=== PATIENT | female | born 1990 | race Caucasian/White ===

== ENCOUNTER 2020-06-17 10:51 | Outpatient (CLI) | payer BC, SELFPAY ==
--- NOTE | ~2020-06-17 | MR_ITS ---
EXAMINATION: MR brain/brain stem wo/w con EXAM DATE: 06/17/2020 11:51 INDICATION: Cough headaches, lasting 1 minute. Symptoms for a few years. TECHNIQUE: Magnetic resonance imaging (MRI) of the brain/brain stem obtained without contrast. Sagit kalpana T1, axial diffusion, gradient echo (T2*), T1, T2, FLAIR sequences obtained. Patient was then inj ected with 20 cc intravenous Multihance contrast. Axial and coronal postcontrast T1 weighted sequence s obtained. There is no prior study for comparison. FINDINGS: Patient has Chiari I malformation, potentially could explain the history provided above. Th ere are no areas of restricted diffusion to suggest acute infarction. There is no acute hemorrhage s een on the T2*, a hemosiderin sensitive sequence. No intraparenchymal brain mass. The ventricles are normal in size. There are no extra-axial collections. Flow voids are seen in the cerebral arteries on the T2-weighted sequences consistent with their expected patency. The orbits are unremarkable. Soft tissue is unremarkable. There are no areas of abnormal enhancement on the postcontrast images. IMPRESSION: Chiari I malformation, potentially could explain symptoms provided. Reviewed, dictated and finalized at location B. 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
[2020-06-17 11:29] LABS: Estimated Glomerular Filt Rate > 60
== END 2020-06-17 10:52 ==
DX: G44.83 Primary cough headache (principal)
CPT/HCPCS: 70553; A9577

== ENCOUNTER 2021-10-20 13:28 | Outpatient (CLI) | payer BC, SELFPAY ==
--- NOTE | ~2021-10-20 | US_ITS ---
EXAMINATION: US transvaginal DATE: 10/20/2021 13:59 INDICATION: Displaced intrauterine device Comparison:No prior studies for comparison. TECHNIQUE: Multiple transabdominal and endovaginal sonographic images of the pelvis performed. FINDINGS: The uterus measures 7.7 x 4 x 4.2 mm. IUD is present in the endometrium. The endometrial co mplex measures 5.5 mm. The right ovary measures 2.3 x 1.9 x 1.7 cm and the left ovary measures 2 x 1.5 x 1.7 cm. There is a 2 cm left ovarian cyst. There are small follicles in each ovary. Normal doppler signal in both ovarie s. There is no free fluid in the pelvis. There are no abnormal masses seen on either side. IMPRESSION: 1. Left ovarian cyst measuring 2 cm. 2: IUD in expected position in the endometrium. Reviewed, dictated and finalized at location A.
== END 2021-10-20 13:29 ==
LOC: MICIMG 13:31
PROVIDERS: PCP Physician Assistant; Visit Provider Obstetrics & Gynecology Gynecology
DX: T83.32XA Displacement of intrauterine contraceptive device, initial encounter (principal); N83.202 Unspecified ovarian cyst, left side
CPT/HCPCS: 76830

== ENCOUNTER → 2022-08-30 09:09 | Outpatient (CLI) | payer BC, SELFPAY ==
--- NOTE | ~2022-08-30 | US_ITS ---
EXAMINATION: US breast RT complete HISTORY: Palpable lump in the upper outer quadrant of the right breast. TECHNIQUE: Complete right breast ultrasound is performed including all four quadrants as well as the subareolar breast. COMPARISON: 01/16/2019 FINDINGS: There is no evidence of focal abnormal cystic or solid mass in the vicinity of the reported palpable abnormality of concern. IMPRESSION: No specific sonographic correlate is identified for the reported palpable abnormality of concern. Fur ther evaluation at this time should be based on clinical assessment. Continued follow-up physical exa mination is recommended. BI-RADS Category 1: Negative Reviewed, dictated and finalized at location A. IMPRESSION: No specific sonographic correlate is identified for the reported palpable abnor mality of concern. Further evaluation at this time should be based on clinical assessment. Continued follow-up physical examination is recommended. BI-RADS Category 1: Negative
== END ==
PROVIDERS: PCP Physician Assistant; Visit Provider Nurse Practitioner
DX: N63.10 Unspecified lump in the right breast, unspecified quadrant (principal)
CPT/HCPCS: 76641

== ENCOUNTER 2024-06-25 00:19 | Day surgery (SDC) | payer BC, SELFPAY ==
--- NOTE | 2024-06-12 09:58 | SUR.PREOP ---
Report to the Outpatient Waiting Room, entrance under the green pavilion located off [facility], at time 1130 on date 06/25/24. Planned Procedure Time: 1330.? Time changes happen often and if your time is changed the preop area will call you the afternoon before. - You and your visitor will be asked to self-screen and do not enter if you have any COVID symptoms. Please call surgeon if you need to reschedule. - A mask is optional within the hospital at this time. Patients may have clear liquids (water, carbonated beverages, clear teas, apple juice) until 3 hours prior to surgery with a maximum of 20 ounces. - NO CLEAR LIQUIDS AFTER 1030 - No food from midnight until time of surgery and no smoking, or chewing tobacco (or any form of nicotine). No chewing gum, candy or mints. - Infants may have breast milk until 4 hours before surgery, infant formula 6 hours prior to surgery. - Children will be allowed to drink immediately following surgery.? If applicable, please bring a bottle or sippy cup to assist with drinking. Juice, water, soda, and popsicles are readily available.? For infants on formula, please bring formula the day of surgery.? Pacifiers are allowed. Take only the following medications with a SIP of water on the morning of surgery: BUPROPION, BUSPIRONE, CLONAZEPAM DO NOT STOP ANY OF YOUR OTHER PRESCRIPTION MEDICATIONS PRIOR TO SURGERY EXCEPT THE FOLLOWING Hold all vitamins and supplements for 3 days per anesthesiologist. Medications to discontinue per physician VITAMINS Date to take last dose 06/21/24 Please no make-up, nail divehi, hairspray, perfume, deodorant, or body powder the day of surgery.? No jewelry (including any body piercings) or valuables the day of surgery, leave them at home.? Please take a shower or bath the night before, or the morning of, surgery with an antibacterial soap.? Wear comfortable, loose fitting clothing.? Children are encouraged to wear pajamas. - Jewelry must be removed prior to entering the operating room.? Rings and piercings that are not removed may be cut off. - The hospital will not accept responsibility for valuables.? - Please leave all valuables, including medications, at home the day of surgery. If you are going home after surgery, a licensed electric mule driver must drive you home.? - NO public transportation without another adult if you receive anesthesia. - We recommend that an adult stay with you for 24 hours following discharge. - We also recommend that you do not drive, make important decision, drink alcoholic beverages, or take any drugs that were not prescribed by your health care provider for at least 24 hours after your discharge time. For Pediatric surgeries, we recommend two adults accompany the child home. Follow any additional instructions given to you from your surgeon. Telephone instructions given to ARASH WOODWARD and asked if any additional questions and then verbalized understanding. Patient advised to call surgeon office or pre surgery nurse liaison [phone] if any additional questions.
[2024-06-12 10:14] VITALS: BMI 41.1
[2024-06-25] VITALS (8 sets, daily range): BP systolic 90–134; BP diastolic 51–82; PULSE 84–100; RESP 12–19; TEMP 36.5–37.4; O2SAT 96–100
--- OUTSIDE RECORDS SUMMARY | 2024-06-25 00:22 | XMS_ITS ---
Author Organization [facility] Address [address] [place] [address] Care Team Providers Care Patcher Wood Welder Name Role Phone Bea Harper PA-C Primary Care Provider UnaJoi Mendez Unavailable [phone] Allergies Allergen (clinical drug ingredient) Drug/Non Drug Allergy documented on EMR Reaction Allergy Type Onset Date Status amoxicillin Amoxicillin Unknown Drug Allergy 08/09/2023 Ac tive Keflex Unknown Drug Allergy 08/09/2023 Active Substance with penicillin structure and antibacterial mechanism of action (substance) Penicillins Unknown Drug Allergy 08/09/2023 Active REASON FOR VISIT follow up medication eval Medications Medication SIG (Take, Route, Frequency, Duration) Notes Start Date End Date Status busPIRone HCl 10 MG 1 tablet Oral Twice a day for 90 days take each morning and afternoon Active busPIRone HCl 30 MG 1 tablet every night Oral Once a day for 90 days Active clonazePAM 0.5 MG 1 tablet Oral Once a day for 30 days As needed for anxiety 05/22/2024 Active buPROPion HCl ER (XL) 300 MG 1 tablet every morning Oral Once a day for 90 days take together with 150 mg tablet for total dose of 450 mg Active lamoTRIgine 100 MG 1 tablet Oral twice a day for 90 days pt also takes 200 mg once daily Active buPROPion HCl ER (XL) 150 MG 1 tablet Oral Once a day for 90 days take together with 300 mg tablet for total dose of 450 mg daily Active lamoTRIgine 200 MG 1 tablet Oral Once a day for 90 days pt also takes lamotrigine 100 mg bid Active Social History Sex Assigned At : Social History Observation Description Sex Assigned At Female Vital Signs Height 68.00 in 05/22/2024 Height-cm 172.72 cm 05/22/2024 Encounters Encounter Location Date Provider Diagnosis [facility] [address] [place] [address] 05/22/2024 Joi Sparks Bipolar disorder, unspecified F31.9 ; Obsessive-compulsive disorder, unspecified F42.9 ; Generalized anxiety disorder F41.1 ; Borderline personality disorder F60.3 and Attention-deficit hyperactivity disorder, unspecified type F90.9 Assessments Encounter Date Diagnosis (ICD Code) Assessment Notes Treatment Notes Treatment Clinical Notes Section Notes 05/22/2024 Bipolar disorder, unspecified (ICD-10 - F31.9) 05/22/2024 Obsessive-compulsi ve disorder, unspecified (ICD-10 - F42.9) 05/22/2024 Generalized anxiety disorder (ICD-10 - F41.1) 05/22/2024 Borderline personality disorder (ICD-10 - F60.3) 05/22/2024 Attention-deficit hyperactivity disorder, unspecified type (ICD-10 - F90.9) Plan Of Treatment Medication Medication Name Sig Start Date Stop Date Notes busPIRone HCl 10 MG 1 tablet Oral Twice a day for 90 days busPIRone HCl 30 MG 1 tablet every night Oral Once a day for 90 days clonazePAM 0.5 MG 1 tablet Oral Once a day for 30 days 05/22/2024 buPROPion HCl ER (XL) 300 MG 1 tablet every morning Oral Once a day for 90 days lamoTRIgine 100 MG 1 tablet Oral twice a day for 90 days pt also takes 200 mg once daily buPROPion HCl ER (XL) 150 MG 1 tablet Oral Once a day for 90 days lamoTRIgine 200 MG 1 tablet Oral Once a day for 90 days pt also takes lamotrigine 100 mg bid Next Appt Details Follow Up: 2 Months, Reason: bipolar d/o f/u; ocd, robby, borderline pers d/o, adhd Provider Name:Unique Black, 07/10/2024 09:00:00 AM, [address], [place], [address], Progress Notes * ARASH WOODWARD MDOB: [birth year] (33 yo F)Acc No.[id number]:05/22/2024 Patient: ARASH GUY Provider: Mila SPARKS MD :1990 A ge:33 Y S ex:Female Date:05/22/2024 Address: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 Follow up medication eval. * HPI: D epression screening: PHQ-9 L ittle interest or pleasure in doing things M ore than half the days, F eeling down, depressed, or hopeless N early every day, T rouble falling or staying asleep, or sleeping too much S everal days, F eeling tired or having little energy M ore than half the days, P oor appetite or overeating S everal days, F eeling bad about yourself or that you are a failure, or have let yourself or your family down N ot at all, T rouble concentrating on things, such as reading the newspaper or watching television?Nearly every day, M oving or speaking so slowly that other people could have noticed; or the opposite, being so fidgety or restless that you have been moving around a lot more than usual M ore than half the days, T houghts that you would be better off or of hurting yourself in some way S everal days (Consider Suicide Assessment Risk), T otal Score 1 5, I nterpretation M oderately Severe Depression. I ntervention D epression Screening Findings Positve, F ollow-Up for Depression M ental health treatment assessment, Patient follow-up to return when and if necessary, Psychiatric follow-up, S uicide Risk Assessment Performed 0 05/22/2024, A dditional Evaluation for Depression P sychiatric interview and evaluation,?Name of the standardized tool used for adult depression screening: P atient Health Questionnaire (PHQ-9). 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 * Medical History: P michelle: Attention deficit hyperactivity disorder, Bipolar I disorder, Borderline personality disorder, Generalized anxiety disorder, Obsessive-compulsive disorder, ,. * Medications: T aking busPIRone HCl 10 MG Tablet 1 tablet Oral Twice a day take each morning and afternoon, Taking busPIRone HCl 30 MG Tablet 1 tablet every night Oral Once a day , Taking clonazePAM 0.5 MG Tablet 1 tablet Oral Once a day As needed for anxiety, Taking lamoTRIgine 100 MG Tablet 1 tablet Oral twice a day , Taking lamoTRIgine 200 MG Tablet 1 tablet Oral Once a day , Taking buPROPion HCl ER (XL) 150 MG Tablet Extended Release 24 Hour TAKE 1 TABLET BY MOUTH DAILY. TOGETHER WITH 300 MG TABLET FOR TOTAL DOSE 450 MG EVERY MORNING 30 DAYS Once a day , Taking buPROPion HCl ER (XL) 300 MG Tablet Extended Release 24 Hour 1 tablet every morning Oral Once a day , Medication List reviewed and reconciled with the patient * Allergies: A moxicillin: Allergy - Onset Date 08/09/2023, Keflex: Allergy - Onset Date 08/09/2023, Penicillins: Allergy - Onset Date 08/09/2023. Objective: * Vitals: H t: 68.00 in, Ht-cm: 172.72 cm. * Examination: P sychiatry: Appearance: w ell-groomed, well-nourished, a ppears younger. Affect / mood: a ppropriate, full range, extremely anxious about potentially pan norovirus-- triggers my OCD , depressed. Attention: g ood. Attitude: c ooperative. Suicidal ideation: n one. Memory status: n o impairment noted. Degree of awareness of surroundings: w ithin normal limits.? Delusions: n o. Hallucinations: n o. Insight: g ood. Intellectual functioning: n o impairment noted. Judgement: g ood. Orientation: a wake, alert and oriented x 3. Perceptual disorders: n o perceptual disorder noted. Psychomotor activity: w ithin normal range. Speech / language: a ppropriate pitch/modulation, clear and coherent, normal rate, volume, and articulation (RVR), proper grammar used. Thought content: a ppropriate. Thought process: i ntact. Assessment: * Assessment: 1. B ipolar disorder, unspecified - F31.9 (Primary) 2 . O bsessive-compulsive disorder, unspecified - F42.9 3 . G eneralized anxiety disorder - F41.1 ? 4 . B orderline personality disorder - F60.3 5 . A ttention-deficit hyperactivity disorder, unspecified type - F90.9 Plan: * Treatment: 2. G eneralized anxiety disorder Refill busPIRone HCl Tablet, 10 MG, 1 tablet, Oral, Twice a day take each morning and afternoon, 90 days, 180, Refills 0; R efill busPIRone HCl Tablet, 30 MG, 1 tablet every night, Oral, Once a day, 90 days, 90, Refills 0; R efill clonazePAM Tablet, 0.5 MG, 1 tablet, Oral, Once a day As needed for anxiety, 30 days, 30, Refills 0. * Procedure Codes: 9 6127 BEHAV ASSMT W/SCORE & DOCD/STAND INSTRUMENT * Follow Up: 2 Months (Reason: bipolar d/o f/u; ocd, robby, borderline pers d/o, adhd) * Billing Information: * Visit Code: 62708 OFFICE OUTPATIENT VISIT 25 MINUTES DETAILED HISTORY AND EXAM/MODERATE MEDICAL DECISION MAKING. * Procedure Codes: 27874 BEHAV ASSMT W/SCORE & DOCD/STAND INSTRUMENT. * ER SHOP OPERATOR Sign off status: Completed Addendum: * true * Provider: Mila SPARKS MD Date: 05/22/2024 Generated for Kallie mendez/Prince/Kristie on: 06/25/2024 12:22 AM BARBER SHOP OPERATOR History and Physical Notes * HPI (History of Present Illness) Category Sub-Category Detail Notes Category Not es Depression screening PHQ-9 Little inte rest or pleasure in doing things: More than half the days Feeling down, depressed, or hopeless: Ne horace every day Trouble falling or staying asleep, or sl eeping too much: Several days Feeling tired or having little energy: M ore than half the days Poor appetite or overeating: Several day s Feeling bad about yourself o r that you are a failure, or have let yourself or your family down: Not at all Trouble concentrating on thi ngs, such as reading the newspaper or watching television: Nearly every day Moving or speaking so slowly that other people could have noticed; or the opposite, being so fidgety or restless that you have been moving around a lot more than usual: More than half the days Thoughts that you would be b kyler off or of hurting yourself in some way: Several days (Consider Suicide Assessment Risk) Total Score: 15 Interpretation: Moderately Severe Depres carlos Intervention Depression Screening Findings: P ositve Follow-Up for Depression: [facility] treatment assessment, Patient follow-up to return when and if necessary, Psychiatric follow-up Suicide Risk Assessment Performed: 05/22 Additional Evaluation for Depression: Ps ychiatric interview and evaluation Name of the standardized too l used for adult depression screening:: Patient Health Questionnaire (PHQ-9) Functional Status reports feeling depressed; having a rough time because therapist has taken a leave of absence, pt will be meeting with a new therapist; current therapist indicated that she plans to return in 2-3 weeks, but pt is apprehensive that she may decide not to return at all; OCD symptoms have been worse, worries about norovirus; is trying to maintain involvement in the community; 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; has been trying to read more, but difficult to stay motivated; has set up f/u appt with Unique Black for June; does not want to make any medication changes at this time Examination Category Sub-Category Detail Notes Category Not es Psychiatry Appearance: well-groomed, well-nourished , appears younger Attitude: cooperative Psychomotor activity: within normal rang e Attention: good Degree of awareness of surroundings: wit hin normal limits Orientation: awake, alert and milena ented x 3 Affect / mood: appropriate, full ra nge, extremely anxious about potentially pan norovirus-- triggers my OCD , depressed Speech / language: appropriate pitch/mo dulation, clear and coherent, normal rate, volume, and articulation (RVR), proper grammar used Insight: good Judgement: good Thought process: intact Thought content: appropriate Perceptual disorders: no perceptual diso rder noted Suicidal ideation: none Intellectual functioning: no impairment noted Memory status: no impairment noted Delusions: no Hallucinations: no
--- OUTSIDE RECORDS SUMMARY | 2024-06-25 00:22 | XMS_ITS | Clinical Summary ---
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 Name Role Phone Natalie Harper Primary Care Provider [phone] Allergies Active Allergy Reactions Criticality Noted Date Comments Adhesive Redness Low 10/26/2020 Some tape and bandaids, skin peels, painful Amoxicillin Rash Medium Cephalexin Rash,Hives Medium 05/09/2024 Penicillins Rash,Hives Medium 05/09/2024 Medications levonorgestreL (MIRENA) IUD by intrauterine route Active ergocalciferol (VITAMIN D) 50,000 unit capsule Take 1 capsule (50,000 Units total) by mouth 09/14/19 24 Active clonazePAM (KlonoPIN) 0.5 mg tabletIndicati ons:anxiety Take 1 tablet (0.5 mg total) by mouth 2 (two) times a day as needed for anxiety 10/14/19 24 Active busPIRone (BUSPAR) 30 mg tabletIndicati ons:Generalize d Anxiety Disorder 10mg in AM, 10mg midday and 30mg hs 10/14/19 24 Active buPROPion XL (WELLBUTRIN XL) 150 mg 24 hr tablet Take 3 tablets (450 mg total) by mouth daily 10/14/19 24 Active lamoTRIgine (LaMICtal) 100 mg tablet 100mg in AM and 300mg in PM 10/14/19 24 Active spironolactone (ALDACTONE) 50 mg tablet Take 1 tablet (50 mg total) by mouth daily 90 tablet 1 03/18/20 24 Active olmesartan-amL ODIPin-hcthiaz id 20-5-12.5 mg tablet TAKE 1 TABLET BY MOUTH DAILY 100 tablet 1 06/15/19 25 Active olmesartan-amL ODIPin-hcthiaz id 20-5-12.5 mg tablet TAKE 1 TABLET BY MOUTH DAILY. 90 tablet 1 01/15/20 24 025 Discontinued Active Problems Problem Noted Date Diagnosed Date Lipid screening 05/25/2024 Assessment & Plan (05/25/2024 10:26 PM DENTAL LAB TECHNICIAN): Check labs Costochondritis 05/25/2024 Assessment & Plan (05/25/2024 10:23 PM DENTAL LAB TECHNICIAN): Discussed with patient costochondritis in the musculoskeletal aspect. May use an anti-inflammatory topical anti-inflammatory and or lidocaine patches to the area. Over time this should resolve. Positive depression screening 05/15/2024 Assessment & Plan (05/25/2024 10:26 PM DENTAL LAB TECHNICIAN): Patient has continued and you had depression symptoms. PHQ- 15 Encouraged her to contact her psychiatrist to see if any adjustment to her medications as needed Tachycardia 10/04/2023 Assessment & Plan (10/14/2023 6:51 PM CDT): Patient has been experiencing tachycardia. Denies shortness or breath or dizziness with tachycardia. She drinks a red bull every morning and intakes a lot of caffeine. EKG in the office was normal sinus rhythm with a heart rate at 89. Stressed importance of stopping all caffeine intake. Remain hydrated continue with antihypertensives. If the tachycardia continues may need to consider referral to Cardiology. Need for Tdap vaccination 10/04/2023 Assessment & Plan (10/14/2023 6:52 PM CDT): Tdap updated in the office today Sore throat 01/10/2023 History of 2019 novel coronavirus disease (COVID -19) 11/27/2022 Overview (11/27/2022): Positive 11/25/2022 Morbid obesity 07/06/2022 Assessment & Plan (05/15/2024 9:51 AM DENTAL LAB TECHNICIAN): Discussed the patient's BMI. The BMI is above average. BMI management plan is completed. BMI Follow-up includes: nutrition counseling, exercise counseling and education provided. Assessment & Plan (10/14/2023 6:47 PM CDT): Discussed the patient's BMI. The BMI is above average. BMI management plan is completed. BMI Follow-up includes: nutrition counseling, exercise counseling and education provided. Patient has an obesity-related condition (not limited to: hypertension, obstructive sleep apnea, osteoarthritis, hyperlipidemia, diabetes, etc.). Therefore, morbid obesity may be documented for patients with a BMI between 35.00-39.99. Assessment & Plan (10/12/2022 3:44 PM CDT): Discussed the patient's BMI. The BMI is above average. BMI management plan is completed. BMI Follow-up includes: nutrition counseling, exercise counseling and education provided. Assessment & Plan (07/06/2022 12:00 PM CDT): Discussed the patient's BMI. The BMI is above average. BMI management plan is completed. BMI Follow-up includes: nutrition counseling, exercise counseling and education provided. BMI 39.0-39.9,adult 04/06/2022 Assessment & Plan (10/14/2023 6:46 PM CDT): Discussed the patient's BMI. The BMI is above average. BMI management plan is completed. BMI Follow-up includes: nutrition counseling, exercise counseling and education provided. Assessment & Plan (04/06/2022 7:25 AM DENTAL LAB TECHNICIAN): Discussed the patient's BMI. The BMI is above average. BMI management plan is completed. BMI Follow-up includes: nutrition counseling, exercise counseling and education provided. COVID-19 04/06/2022 Overview (04/06/2022): 03/2022 Assessment & Plan (04/06/2022 7:48 AM DENTAL LAB TECHNICIAN): If positive COVID: Stay home for at least 5 days and isolate from others in your home. Wear a well-fitted mask if you must be around others in your home. End isolation after 5 full days if you are fever-free for 24 hours (without the use of fever-reducing medication) and your symptoms are improving. Wear a well-fitted mask for 10 full days any time you are around others inside your home or in public. Do not go to places where you are unable to wear a mask. Avoid travel Avoid being around people who are at high risk Discussed Kevin -- reviewed risks benefits and alternatives. She would like to treat symptoms at this time and monitor. Treat sxs with Tylenol, Cough/cold medication otc and add VitD 5,000IU daily and Zinc 50mg daily. Monitor sxs and call or go to the ER if has any of the following: --trouble breathing --persistent pain or pressure in the chest --new confusion --inability to wake or stay awake -- bluish lips or face Acute cough 04/06/2022 Assessment & Plan (04/06/2022 8:46 PM DENTAL LAB TECHNICIAN): Patient tested positive for COVID. See COVID for instructions Acute pansinusitis 10/28/2021 Assessment & Plan (10/28/2021 9:50 AM CDT): Start antibiotic, antihistamine (Claritin OR Zyrtec), Mucinex 12hour and Steroid nasal spray (Flonase). Push fluids. Rest. Supportive care. If sxs worsen or don\'t improve, pt is to followup in the office. Doxy to pharmacy as PCN allergy Annual physical exam 10/06/2021 Assessment & Plan (10/14/2023 6:46 PM CDT): Encouraged healthy lifestyle, good nutrition and exercise. Encouraged Calcium and Vitamin D and weight bearing exercise for bone health. Reviewed immunizations Reviewed age appropirate screenings. Assessment & Plan (10/12/2022 3:46 PM CDT): Encouraged healthy lifestyle, good nutrition and exercise. Encouraged Calcium and Vitamin D and weight bearing exercise for bone health. Reviewed immunizations Reviewed age appropirate screenings. Assessment & Plan (10/06/2021 8:05 AM CDT): Encouraged healthy lifestyle, good nutrition and exercise. Encouraged Calcium and Vitamin D and weight bearing exercise for bone health. Reviewed immunizations Reviewed age appropirate screenings. Diabetes mellitus screening 10/06/2021 Assessment & Plan (05/25/2024 10:25 PM DENTAL LAB TECHNICIAN): Check labs Assessment & Plan (10/06/2021 8:05 AM CDT): Check labs Fatigue 10/06/2021 Assessment & Plan (05/25/2024 10:25 PM DENTAL LAB TECHNICIAN): Probably multifactorial. Check labs and followup to re-evaluate Assessment & Plan (10/06/2021 8:06 AM CDT): Probably multifactorial. Check labs and followup to re-evaluate Chiari malformation type I ([facility]) 09/01/2020 Cough headache 11/28/2019 Assessment & Plan (06/03/2020 9:22 AM DENTAL LAB TECHNICIAN): Continue per neurology On Indomethacin MRI pending Assessment & Plan (05/29/2020 8:30 PM DENTAL LAB TECHNICIAN): Continue per Neurology --- Chronic headache 11/28/2019 Assessment & Plan (11/28/2019 9:43 PM CDT): Odd presentation with WILDE. Initially considered tension WILDE. Doesn't seem to be migraine-- Will refer to WILDE clinic for further evaluation to determine best treatment. Cough due to MOISES inhibitor 11/28/2019 Assessment & Plan (11/28/2019 9:44 PM CDT): Change to Losartan BMI 40.0-44.9, adult 10/15/2019 Assessment & Plan (05/15/2024 9:50 AM DENTAL LAB TECHNICIAN): Discussed the patient's BMI. The BMI is above average. BMI management plan is completed. BMI Follow-up includes: nutrition counseling, exercise counseling and education provided. Assessment & Plan (05/29/2020 8:31 PM DENTAL LAB TECHNICIAN): Obesity is unchanged. Discussed the patient's BMI. The BMI is above average. BMI management plan is completed. BMI Follow-up includes: nutrition counseling, exercise counseling and education provided. Assessment & Plan (11/27/2019 4:07 PM CDT): Obesity is unchanged. Discussed the patient's BMI. The BMI is above average. BMI management plan is completed. BMI Follow-up includes: nutrition counseling, exercise counseling and education provided. Assessment & Plan (10/15/2019 11:31 AM CDT): Obesity is unchanged. Discussed the patient's BMI. The BMI is above average. BMI management plan is completed. BMI Follow-up includes: nutrition counseling, exercise counseling and education provided. Chronic tension-type headache, not intractable 0 07/17/2019 Assessment & Plan (10/18/2019 4:28 PM CDT): WILDE seems different than her normal WILDE. Treat bp agressively and will monitor WILDE as bp is controlled Assessment & Plan (07/17/2019 3:06 PM CDT): Discussed WILDE trigger, especially tension WILDE. Stress, poor ergonomics, tight muscles, poor sleep patterns etc. Encouraged to make behavior changes as able. Encouraged PT. Order provided Avoid Psuedofed Start Mucinex and Flonase and an antihistamine. Essential hypertension 07/17/2019 Assessment & Plan (05/25/2024 10:25 PM DENTAL LAB TECHNICIAN): Bp is stable/in acceptable range for any co-morbidities. Encouraged to limit sodium intake and exercise for weight control. Continue Tribenzor 20/5/12.5 Assessment & Plan (10/14/2023 6:45 PM CDT): Bp is stable/in acceptable range for any co-morbidities. Encouraged to limit sodium intake and exercise for weight control. Continue spironolactone and Tribenzor 10/09/11 Assessment & Plan (10/12/2022 3:43 PM CDT): Continue gfhvruwugx-vkauamrqhh-NOHT combination pill. Record at home blood pressure readings. Limit salt intake. Assessment & Plan (07/16/2022 9:52 PM CDT): Encouraged to limit sodium intake and exercise for weight control. bp still is not at goal. Continue amlodipine 5 at nighttime Losartan 50 in the morning and add hydrochlorothiazide 25 in the morning. Follow-up in a week or 2 with readings to see if we have good control. Check CMP in 2-3 weeks for stability with starting diuretic. Assessment & Plan (04/06/2022 8:47 PM DENTAL LAB TECHNICIAN): Encouraged to limit sodium intake and exercise for weight control. Blood pressure is elevated today. She does have a low-grade fever and is ill. Encouraged to continue monitoring at home and if when she is better the readings are still high will need to restart the diuretic. She is in agreement with the plan Assessment & Plan (10/06/2021 8:05 AM CDT): Bp is stable/in acceptable range for any co-morbidities. Encouraged to limit sodium intake and exercise for weight control. Currently managed without medication. Patient thinks her headaches have significantly improved since the treatment of the carry malformation. Will monitor closely as it was a little more elevated today Assessment & Plan (12/12/2020 3:46 PM CDT): Bp is stable/in acceptable range for any co-morbidities. Encouraged to limit sodium intake and exercise for weight control. Continue losartan 25 Assessment & Plan (08/16/2020 1:09 AM CDT): Bp is stable/in acceptable range for any co-morbidities. Encouraged to limit sodium intake and exercise for weight control. Appears stable today. Continue the losartan 25mg bid and monitor readings. Assessment & Plan (07/18/2020 11:41 PM CDT): Bp is stable/in acceptable range for any co-morbidities. Encouraged to limit sodium intake and exercise for weight control. Increase losartan to 50mg (take TWO 25mg tabs) Call in a few weeks with readings and if stable will send 50mg tabs. Assessment & Plan (06/03/2020 9:22 AM DENTAL LAB TECHNICIAN): Bp is stable/in acceptable range for any co-morbidities. Encouraged to limit sodium intake and exercise for weight control. Continue losartan Assessment & Plan (05/29/2020 8:30 PM DENTAL LAB TECHNICIAN): Continue losartan. Cough has resolved. Assessment & Plan (11/28/2019 9:43 PM CDT): Well controlled with lisinopril but suspect MOISES cough. Change to losartan. Monitor bp readings. Assessment & Plan (10/18/2019 4:12 PM CDT): Bp is elevated. Encouraged to limit sodium intake and exercise for weight control. Discussed treatment options. Start with Lisinopril F.u 4 weeks to recheck Assessment & Plan (07/17/2019 3:13 PM CDT): Stop the Psudofed decongestant. 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 She is anxious about these diagnosis possibilities but reassured her this is not cardiac chest pain and that we will treat the musculoskeletal condition appropriately. She is to call if she has any other concerns or problems Assessment & Plan (10/14/2023 6:45 PM CDT): Continue per Psychiatry. She is seeing Dr. Barton in [place]. She is on Klonopin p.r.n. BuSpar 30 at bedtime and 10 in the morning it mid day Lamictal 100 in the a.m. and 300 at bedtime and Wellbutrin XL 450 Assessment & Plan (10/12/2022 3:44 PM CDT): Continue management per psychiatry as she is happy with her current treatment regimen. Assessment & Plan (10/06/2021 8:05 AM CDT): Continue per Psychiatry. Happy with her current combination. Continue with counseling. Assessment & Plan (12/12/2020 3:47 PM CDT): Continue with psychiatrist. Assessment & Plan (08/16/2020 1:10 AM CDT): Continue with psychiatrist. Monitor swelling and sxs closely as may be related to emotional eating. Call with change in her sxs. Assessment & Plan (06/03/2020 9:24 AM DENTAL LAB TECHNICIAN): Continue per Dr. Rodriguez Assessment & Plan (05/29/2020 8:32 PM DENTAL LAB TECHNICIAN): Continue per psychiatrist. Assessment & Plan (11/28/2019 9:44 PM CDT): Continue per psychiatrist Assessment & Plan (07/17/2019 3:09 PM CDT): Strongly encouraged to consider treatment. Encouraged psychiatry evaluation. Provided names of providers in the area. She admits she really is happy with being manic, except when she is so depressed so doesn't think she will consider medication. Resolved Problems Problem Noted Date Diagnosed Date Resolved Date Class 3 severe obesity due t o excess calories without serious comorbidity with body mass index (BMI) of 40.0 to 44.9 in adult 10/12/2022 Assessment & Plan (10/12/2022 3:59 PM CDT): Discussed the patient's BMI. The BMI is above average. BMI management plan is completed. BMI Follow-up includes: nutrition counseling, exercise counseling and education provided. BMI 40.0-44.9, adult 07/06/2022 023 Assessment & Plan (07/06/2022 12:00 PM CDT): Discussed the patient's BMI. The BMI is above average. BMI management plan is completed. BMI Follow-up includes: nutrition counseling, exercise counseling and education provided. Morbid obesity 04/06/2022 07/06/2022 Assessment & Plan (04/06/2022 8:45 PM DENTAL LAB TECHNICIAN): Discussed the patient's BMI. The BMI is above average. BMI management plan is completed. BMI Follow-up includes: nutrition counseling, exercise counseling and education provided. Patient has an obesity-related condition (not limited to: hypertension, obstructive sleep apnea, osteoarthritis, hyperlipidemia, diabetes, etc.). Therefore, morbid obesity may be documented for patients with a BMI between 35.00-39.99. Diarrhea 05/25/2021 10/06/2021 Assessment & Plan (05/25/2021 7:17 PM DENTAL LAB TECHNICIAN): Brat diet. Push fluids and observe for dehydration. Will go ahead and test for COVID is it has been presenting with some GI symptoms. If it is negative will encouraged to continue the above treatment and call if symptoms worsen she notes blood in her stool begins to run a fever or has persistent symptoms that will resolve. Close exposure to COVID-19 virus 05/25/2021 10/06/2021 Assessment & Plan (05/25/2021 7:17 PM DENTAL LAB TECHNICIAN): Patient to presume positive COVID/FLU until results are available and plan to self isolate for up to 10 days from the onset of sxs. Check COVID/FLU test thru [facility] collection site in [place]. Let pt know the newest CDC recommendations are as follows: If positive COVID: Stay home for at least 5 days and isolate from others in your home. Wear a well-fitted mask if you must be around others in your home. End isolation after 5 full days if you are fever-free for 24 hours (without the use of fever-reducing medication) and your symptoms are improving. Wear a well-fitted mask for 10 full days any time you are around others inside your home or in public. Do not go to places where you are unable to wear a mask. Avoid travel Avoid being around people who are at high risk Consider mAb or there appropriate meds depending on risk factors. If positive FLU, complete 5 day quarantine and be fever free for 24 hours without meds and may consider antiviral based on timing and risk factors. If negative, treat sxs and observe. Treat sxs with Tylenol, Cough/cold medication otc and add VitD 5,000IU daily and Zinc 50mg daily. Monitor sxs and call or go to the ER if has any of the following: --trouble breathing --persistent pain or pressure in the chest --new confusion --inability to wake or stay awake -- bluish lips or face Frequent urination 12/12/2020 Assessment & Plan (12/12/2020 3:46 PM CDT): Recheck urine culture/UA to confirm resolution BMI 40.0-44.9, adult 07/08/2020 021 Assessment & Plan (07/08/2020 1:27 PM CDT): Obesity is unchanged. Discussed the patient's BMI. The BMI is above average. BMI management plan is completed. BMI Follow-up includes: nutrition counseling, exercise counseling and education provided. Morbid obesity with BMI of 40.0-44.9, adult 07/08/2020 04/06/2022 Assessment & Plan (10/06/2021 8:05 AM CDT): Obesity is unchanged. Discussed the patient's BMI. The BMI is above average. BMI management plan is completed. BMI Follow-up includes: nutrition counseling, exercise counseling and education provided. Assessment & Plan (12/08/2020 1:05 PM CDT): Obesity is unchanged. Discussed the patient's BMI. The BMI is above average. BMI management plan is completed. BMI Follow-up includes: nutrition counseling, exercise counseling and education provided. Assessment & Plan (07/08/2020 1:28 PM CDT): Obesity is unchanged. Discussed the patient's BMI. The BMI is above average. BMI management plan is completed. BMI Follow-up includes: nutrition counseling, exercise counseling and education provided. BMI 40.0-44.9, adult 06/03/2020 021 Assessment & Plan (06/03/2020 8:55 AM DENTAL LAB TECHNICIAN): Obesity is unchanged. Discussed the patient's BMI. The BMI is above average. BMI management plan is completed. BMI Follow-up includes: nutrition counseling, exercise counseling and education provided. Morbid obesity with BMI of 40.0-44.9, adult 06/03/2020 07/08/2020 Assessment & Plan (06/03/2020 9:24 AM DENTAL LAB TECHNICIAN): Obesity is unchanged. Discussed the patient's BMI. The BMI is above average. BMI management plan is completed. BMI Follow-up includes: nutrition counseling, exercise counseling and education provided. Annual physical exam 05/29/2020 021 Assessment & Plan (05/29/2020 8:32 PM DENTAL LAB TECHNICIAN): Encouraged healthy lifestyle, good nutrition and exercise. Encouraged Calcium and Vitamin D and weight bearing exercise for bone health. Reviewed immunizations Reviewed age appropirate screenings. Morbid obesity with BMI of 40.0-44.9, adult 05/29/2020 05/29/2020 Obesity, morbid, BMI 40.0-49.9 05/26/2020 06/03/2020 Assessment & Plan (05/29/2020 8:31 PM DENTAL LAB TECHNICIAN): Obesity is unchanged. Discussed the patient's BMI. The BMI is above average. BMI management plan is completed. BMI Follow-up includes: nutrition counseling, exercise counseling and education provided. BMI 37.0-37.9, adult 07/17/2019 020 Assessment & Plan (07/17/2019 10:22 AM CDT): Obesity is unchanged. Discussed the patient's BMI. The BMI is above average. BMI management plan is completed. BMI Follow-up includes: nutrition counseling, exercise counseling and education provided. Obesity (BMI 30-39.9) 07/17/20192020 Assessment & Plan (11/27/2019 4:07 PM CDT): Obesity is unchanged. Discussed the patient's BMI. The BMI is above average. BMI management plan is completed. BMI Follow-up includes: nutrition counseling, exercise counseling and education provided. Assessment & Plan (10/15/2019 11:30 AM CDT): Obesity is unchanged. Discussed the patient's BMI. The BMI is above average. BMI management plan is completed. BMI Follow-up includes: nutrition counseling, exercise counseling and education provided. Assessment & Plan (07/17/2019 10:22 AM CDT): Obesity is unchanged. Discussed the patient's BMI. The BMI is above average. BMI management plan is completed. BMI Follow-up includes: nutrition counseling, exercise counseling and education provided. Anxiety 02/18/2016 07/17/2019 Encounters Date Type Department Care Team Description 06/23/2024 Orders Only [facility] [address] [place] [phone] Natalie Harper, PA Change in consistency of stool (Primary Dx) 06/23/2024 Telephone [facility] [address] [place] [address] Zahra Faith MD 06/22/2024 Patient Self-Triage [facility] [address] [place] [phone] Mychart, Generic Provider 05/15/2024 9:30 AM DENTAL LAB TECHNICIAN Office Visit [facility] [address] [place] [phone] Natalie Harper PA Costochondritis (Primary Dx); Bipolar 1 disorder (HCC); Essential hypertension; Lipid screening; Fatigue, unspecified type; Diabetes mellitus screening; Positive depression screening; Morbid obesity (HCC); BMI 40.0-44.9, adult (HCC) 05/10/2024 Patient Self-Triage [facility] [address] [place] [id number] Mychart, Generic Provider from Last 3 Months Immunizations Immunization Administration Dates Next Due HPV, Quadrivalent 08/04/2015 Influenza, Quadrivalent, Rec ombinant, Egg Free, Preservative Free, Intramuscular 02/12/2020,01/31/2018 Influenza, Quadrivalent, Spl it, Preservative Free, Intramuscular 02/21/2023,02/25/2022,02/17/2021,01/18,01/25/2017 Influenza, Trivalent, IM (MDV) 01/12/2014,2012 Influenza, Unspecified 02/21/2023,2022(Deferred: Patient Refused),02/25/2022,01/21/2020 Moderna SARS-CoV-2 Monovalen t Vaccination (12+ YRS) 07/19/2020,06/21/2020 Pfizer Sars-Cov-2 Bivalent V accination (12+ YRS) 02/25/2022 TD Preservative Free 08/03/2012 Tdap 10/04/2023,02/20/2013,08/03/2012 Varicella 06/07/2019,05/01/2019 Surgical History Surgery Date Site/Laterality Comments [place] DELIVERY ONLY Section - 2012 (Added by TW Conv) Medical History Medical History Date Comments History of methicillin resis tant Staphylococcus aureus infection History of methicillin resistant Staphylococcus aureus infection - (Added by TW Conv) Encounter for other general counseling and advice on contraception Encounter for other genera l counseling or advice on contraception - (Added by TW Conv) Anxiety Depression Migraine Hypertension Family History Medical History Relation Name Comments Celiac disease Father Hypertension Father Heart attack Maternal Grandfather Cancer Maternal Grandmother Depression Maternal Grandmother Alcohol abuse Mother Anemia Mother Depression Mother Heart disease Mother Hyperlipidemia Mother Hypertension Mother Memory loss Mother Cancer Paternal Grandmother Hypertension Paternal Grandmother Kidney disease Paternal Grandmother Migraines Paternal Grandmother Bipolar disorder Sister 1 Depression Sister 1 Relation Name Status Comments Father Alive Maternal Grandfather Maternal Grandmother Mother Alive Paternal Grandmother Sister 1 Alive Sister 2 Alive Social History Tobacco Use Types Packs/Day Years Used Date Smoking Tobacco: Never Smokeless Tobacco: Never Tobacco Cessation:Counseling Given: Not Answered Alcohol Use Standard Drinks/Week Comments Never 0 (1 standard drink = 0.6 oz pur e alcohol) AUDIT-C Answer Date Recorded Q1: How often do you have a drink containing alc ohol? 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 Not on file Not on file Obstetrics History Last Filed Vital Signs Vital Sign Reading Time Taken Comments Blood Pressure 126/84 05/15/2024 9:49 AM DENTAL LAB TECHNICIAN Pulse 91 05/15/2024 9:49 AM DENTAL LAB TECHNICIAN Temperature 36.8 C (98.2 F) 05/15/2024 9:49 AM DENTAL LAB TECHNICIAN Respiratory Rate 16 10/12/2022 7:22 AM CDT Oxygen Saturation 97% 05/15/2024 9:49 AM DENTAL LAB TECHNICIAN Inhaled Oxygen Concentration - - Weight 122.4 kg (269 lb 14.4 oz) 05/15/2024 9:49 AM DENTAL LAB TECHNICIAN Height 172.7 cm (5' 8 ) 05/15/2024 9:49 AM DENTAL LAB TECHNICIAN Body Mass Index 41.04 05/15/2024 9:49 AM DENTAL LAB TECHNICIAN Plan of Treatment Health Maintenance Due Date Last Done Comments Hepatitis C Screening 1990 Hepatitis B Screening 2008 HPV Vaccines (2 - 3-dose series) 09/01/2015 08/04/2015 Covid-19 Vaccine ( season) 2023 02/25/2022, 03/16/2021, 07/19/2020, Additional history exists Cervical Cancer Screening 09/05/2024 09/06/2023 Regular Well Visit/Exam 18-64 10/03/2024 10/04/2023, 10/12/2022, 10/06/2021, Additional history exists Depression Screening 05/15/2025 05/15/2024, 05/15/2024, 10/04/2023, Additional history exists DTaP/Tdap/Td Vaccine (4 - Td or Tdap) 10/03/2033 10/04/2023, 02/20/2013, 08/03/2012, Additional history exists Varicella Vaccines Completed 06/07/2019, 05/01/2019 Influenza Vaccine Completed 02/18/2024, , 02/21/2023, Additional history exists Pneumococcal vaccine <65 Aged Out No longer eligible based on patient's age to complete this topic Medical Devices Implanted Type Area Water Filter Cleaner Device Identifier Shelf Expiration Date Model / Serial / Lot inDegree [employer] [id number] Seprafilm 6x5in Barrier Adhesion Sterile Disposable Latex Free - [id number] Implanted:Qty: 1 on 10/28/2020 by Mike Chiu MD at [facility] N/A: Head Awdio 04/08/2023 [id number] / [id number] Procedures Procedure Name Priority Date/Time Associated Diagnosis Comments VITAMIN D 25 HYDROXY Routine 05/15/2024 10:57 AM DENTAL LAB TECHNICIAN BMI 40.0-44.9, adult (HCC) Morbid obesity (HCC) VITAMIN B12 Routine 05/15/2024 10:57 AM DENTAL LAB TECHNICIAN Fatigue, unspecified type TSH Routine 05/15/2024 10:57 AM DENTAL LAB TECHNICIAN Fatigue, unspecified type LIPID PANEL Routine 05/15/2024 10:57 AM DENTAL LAB TECHNICIAN Lipid screening HEMOGLOBIN A1C Routine 05/15/2024 10:57 AM DENTAL LAB TECHNICIAN Diabetes mellitus screening COMPREHENSIVE METABOLIC PANEL Routine 05/15/2024 10:57 AM DENTAL LAB TECHNICIAN Essential hypertension CBC WITH AUTO DIFFERENTIAL Routine 05/15/2024 10:57 AM DENTAL LAB TECHNICIAN Fatigue, unspecified type HM PAP SMEAR WITH HPV Routine 09/06/2023 10:53 AM CDT from Last 3 Months or Most Recently Relevant to Health Maintenance Results * CBC with auto differential (05/15/2024 10:57 AM DENTAL LAB TECHNICIAN) WBC 5.1 3.4 - 10.8 x10E3/uL [facility] - 01 RBC 4.47 3.77 - 5.28 x10E6/uL [facility] - 01 Hgb 13.2 11.1 - 15.9 g/dL [facility] - 01 Hct 40.2 34.0 - 46.6 % [facility] - 01 MCV 90 79 - 97 fL [facility] - 01 MCH 29.5 26.6 - 33.0 pg [facility] - 01 MCHC 32.8 31.5 - 35.7 g/dL [facility] - 01 Rdw 12.9 11.7 - 15.4 % [facility] - 01 Platelets 281 150 - 450 x10E3/uL [facility] - 01 Neutrophils pct 63 Not Estab. % [facility] - 01 Lymphs pct 26 Not Estab. % [facility] - 01 Monocytes pct 9 Not Estab. % [facility] - 01 Eosinophils pct 1 Not Estab. % [facility] - 01 Basophil pct 1 Not Estab. % [facility] - 01 Neutrophil abs 3.2 1.4 - 7.0 x10E3/uL [facility] - 01 Lymphs (Absolute) 1.3 0.7 - 3.1 x10E3/uL [facility] - 01 Monocyte abs 0.5 0.1 - 0.9 x10E3/uL [facility] - 01 Eosinophils, abs 0.1 0.0 - 0.4 x10E3/uL [facility] - 01 Basophils, abs 0.1 0.0 - 0.2 x10E3/uL [facility] - 01 Immature Granulocytes 0 Not Estab. % [facility] - 01 Immature Grans (Abs) 0.0 0.0 - 0.1 x10E3/uL [facility] - 01 Blood 05/15/2024 10:5 7 AM DENTAL LAB TECHNICIAN 05/15/2024 Narrative [facility] - 05/16/2024 7:36 AM DENTAL LAB TECHNICIAN Performed at: [facility] [id number] Card Assembler: David Cho PhD, Phone: [phone] Natalie PEREZ LAB BLOOD ORDERABLES Final Result Performing Organization Address [facility]/ZIP Co de Phone Number [facility] - * Vitamin D 25 hydroxy (05/15/2024 10:57 AM DENTAL LAB TECHNICIAN) [facility] Vitamin D, 25-Hydroxy 37.8 30.0 - 100.0 ng/mL [facility] - Comment: Vitamin D deficiency has been defined by the [place] of Medicine and an Endocrine Society practice guideline as a level of serum 25-OH vitamin D less than 20 ng/mL (1,2). The Endocrine Society went on to further define vitamin D insufficiency as a level between 21 and 29 ng/mL (2). 1. IOM ([place] of Medicine). 2010. Dietary reference intakes for calcium and D. [place]: The National Academies Press. 2. Master MF, Julio DEL ANGEL, Nori WILDE, et al. Evaluation, treatment, and prevention of vitamin D deficiency: an Endocrine Society clinical practice guideline. JCEM. 2010; 96(7):1911-30. Blood 05/15/2024 10:5 7 AM DENTAL LAB TECHNICIAN 05/15/2024 Narrative [facility] - 05/16/2024 7:36 AM DENTAL LAB TECHNICIAN Performed at: [address] [id number] Card Assembler: David Cho PhD, Phone: [phone] Natalie PEREZ LAB BLOOD ORDERABLES Final Result Performing Organization Address City/[facility]/ZIP [facility] * TSH (05/15/2024 10:57 AM DENTAL LAB TECHNICIAN) [facility] TSH 1.220 0.450 - 4.500 uIU/mL [facility] - 01 Blood 05/15/2024 10:5 7 AM DENTAL LAB TECHNICIAN 05/15/2024 Narrative [facility] - 05/16/2024 7:36 AM DENTAL LAB TECHNICIAN Performed at: [address] [place] [id number] Card Assembler: David Cho PhD, Phone: [phone] Natalie PEREZ LAB BLOOD ORDERABLES Final Result Performing Organization Address City/[facility]/ZIP Co de Phone Number [facility] - * Hemoglobin A1c (05/15/2024 10:57 AM DENTAL LAB TECHNICIAN) [facility] Hgb A1C 5.6 4.8 - 5.6 % [facility] - 01 Comment: Prediabetes: 5.7 - 6.4 Diabetes: >6.4 Glycemic control for adults with diabetes: <7.0 Blood 05/15/2024 10:5 7 AM DENTAL LAB TECHNICIAN 05/15/2024 Narrative [facility] - 05/16/2024 7:36 AM DENTAL LAB TECHNICIAN Performed at: [address] [place] [id number] Card Assembler: David Cho PhD, Phone: [phone] Natalie PEREZ LAB BLOOD ORDERABLES Final Result Performing Organization Address City/[facility]/ZIP Co de Phone Number [facility] - * Vitamin B12 (05/15/2024 10:57 AM DENTAL LAB TECHNICIAN) [facility] Vitamin B12 422 232 - 1,245 pg/mL [facility] - 01 Blood 05/15/2024 10:5 7 AM DENTAL LAB TECHNICIAN 05/15/2024 Narrative [facility] - 05/16/2024 7:36 AM DENTAL LAB TECHNICIAN Performed at: [address] [place] [id number] Card Assembler: David Cho PhD, Phone: [phone] Natalie PEREZ LAB BLOOD ORDERABLES Final Result Performing Organization Address [facility] Co de Phone Number [facility] * (ABNORMAL) Lipid panel (05/15/2024 10:57 AM DENTAL LAB TECHNICIAN) Cholesterol 183 100 - 199 mg/dL [facility] - 01 Triglycerides 78 0 - 149 mg/dL [facility] - 01 HDL Cholesterol 43 >39 mg/dL [facility] - 01 VLDL 15 5 - 40 mg/dL [facility] - 01 LDL, calculated 125(H) 0 - 99 mg/dL [facility] - 01 Blood 05/15/2024 10:5 7 AM DENTAL LAB TECHNICIAN 05/15/2024 Narrative [facility] - 05/16/2024 7:36 AM DENTAL LAB TECHNICIAN Performed at: [address] [id number] Card Assembler: David Cho PhD, Phone: [phone] Natalie PEREZ LAB BLOOD ORDERABLES Final Result Performing Organization Address [facility] de Phone Number [facility] * Comprehensive metabolic panel (05/15/2024 10:57 AM DENTAL LAB TECHNICIAN) Glucose 91 70 - 99 mg/dL [facility] - 01 BUN 11 6 - 20 mg/dL [facility] - 01 Creatinine, Serum 0.94 0.57 - 1.00 mg/dL [facility] - 01 eGFR 82 >59 mL/min/1.73 [facility] - 01 BUN/creat ratio 12 9 - 23 [facility] - 01 Sodium 139 134 - 144 mmol/L [facility] - 01 Potassium, sr 4.9 3.5 - 5.2 mmol/L [facility] - 01 Chloride 101 96 - 106 mmol/L [facility] - 01 CO2 26 20 - 29 mmol/L [facility] - 01 Calcium 9.7 8.7 - 10.2 mg/dL [facility] - 01 Protein, sr 6.4 6.0 - 8.5 g/dL [facility] - 01 Albumin 4.3 3.9 - 4.9 g/dL [facility] - 01 Globulin, Total 2.1 1.5 - 4.5 g/dL [facility] - 01 Bilirubin, Total 0.5 0.0 - 1.2 mg/dL [facility] - 01 Alk phos 78 44 - 121 IU/L [facility] - 01 AST 16 0 - 40 IU/L [facility] - 01 ALT 14 0 - 32 IU/L [facility] - 01 Blood 05/15/2024 10:5 7 AM DENTAL LAB TECHNICIAN 05/15/2024 Narrative [facility] - 05/16/2024 7:36 AM DENTAL LAB TECHNICIAN [place]formed at: [place] [id number] Card Assembler: David Cho PhD, Phone: [phone] Natalie PEREZ LAB BLOOD ORDERABLES Final Result [facility] - 01 * HM PAP SMEAR WITH HPV (09/06/2023 10:53 AM CDT) Scribed Pap Smear w/HPV Normal Historical Provider HEALTH MAINTENANCE Edited Result - Final from Last 3 Months or Most Recently Relevant to [place] [address] [facility] [address] Advance Directives For more information, please contact: [phone] Documents on File Type Date Recorded Patient Director Supply Expl anation ADVANCE DIRECTIVE 10/28/2020 5:53 AM Care Teams Steel Loader Relationship Specialty Start Date End Date Natalie Harper PA [address] [place] [address] PCP - General Internal Medicine 07/17/19
--- OUTSIDE RECORDS SUMMARY | 2024-06-25 00:22 | XMS_ITS | Referral Summary ---
Author Organization [facility] Address [address] [place] [phone] Care Team Providers Care Stylist Assistant Name Role Phone Natalie Harper Primary Care Provider [phone]- [phone] Encounters Date Type Department Care Team Description 06/23/2024 Orders Only [facility] Family Medicine [address] [place] [phone] Natalie Harper PA Change in consistency of stool (Primary Dx) 06/23/2024 Telephone [place] [address] [address] aZhra Faith MD 06/22/2024 Patient Self-Triage [facility] [address] [place] [address] Renée, Generic Provider 05/15/2024 9:30 AM BRAIN PICKER Office Visit [facility] Family Medicine [address] [place] [address] [place] [phone] Natalie Harper PA Costochondritis (Primary Dx); Bipolar 1 disorder (HCC); Essential hypertension; Lipid screening; Fatigue, unspecified type; Diabetes mellitus screening; Positive depression screening; Morbid obesity (HCC); BMI 40.0-44.9, adult ([facility]) 05/10/2024 Patient Self-Triage [facility] [place] [address] Mychart, Generic Provider from Last 3 Months Allergies Active Allergy Reactions Criticality Noted Date [...] 05/25/2024 Assessment & Plan (05/25/2024 10:26 PM BRAIN PICKER): Check labs Costochondritis 05/25/2024 Assessment & Plan (05/25/2024 10:23 PM BRAIN PICKER): Discussed with patient costochondritis in the musculoskeletal aspect. May use an anti-inflammatory topical anti-inflammatory and or lidocaine patches to the area. Over time this should resolve. Positive depression screening 05/15/2024 Assessment & Plan (05/25/2024 10:26 PM BRAIN PICKER): Patient has continued and you had depression [...] 07/06/2022 Assessment & Plan (05/15/2024 9:51 AM BRAIN PICKER): Discussed the patient's BMI. The BMI is [...] provided. Assessment & Plan (04/06/2022 7:25 AM BRAIN PICKER): Discussed the patient's BMI. The BMI is above average. BMI management plan is completed. BMI Follow-up includes: nutrition counseling, exercise counseling and education provided. COVID-19 04/06/2022 Overview (04/06/2022): 03/2022 Assessment & Plan (04/06/2022 7:48 AM BRAIN PICKER): If positive COVID: Stay home for at [...] 04/06/2022 Assessment & Plan (04/06/2022 8:46 PM BRAIN PICKER): Patient tested positive for COVID. See COVID [...] 10/06/2021 Assessment & Plan (05/25/2024 10:25 PM BRAIN PICKER): Check labs Assessment & Plan (10/06/2021 8:05 AM CDT): Check labs Fatigue 10/06/2021 Assessment & Plan (05/25/2024 10:25 PM BRAIN PICKER): Probably multifactorial. Check labs and followup to re-evaluate Assessment & Plan (10/06/2021 8:06 AM CDT): Probably multifactorial. Check labs and followup to re-evaluate Chiari malformation type I (CMS/HCC) 09/01/2020 Cough headache 11/28/2019 Assessment & Plan (06/03/2020 9:22 AM BRAIN PICKER): Continue per neurology On Indomethacin MRI pending Assessment & Plan (05/29/2020 8:30 PM BRAIN PICKER): Continue per Neurology --- Chronic headache 11/28/2019 [...] 10/15/2019 Assessment & Plan (05/15/2024 9:50 AM BRAIN PICKER): Discussed the patient's BMI. The BMI is above average. BMI management plan is completed. BMI Follow-up includes: nutrition counseling, exercise counseling and education provided. Assessment & Plan (05/29/2020 8:31 PM BRAIN PICKER): Obesity is unchanged. Discussed the patient's BMI. [...] 07/17/2019 Assessment & Plan (05/25/2024 10:25 PM BRAIN PICKER): Bp is stable/in acceptable range for any co-morbidities. Encouraged to limit sodium intake and exercise for weight control. Continue Tribenzor 10/09/11.5 Assessment & Plan (10/14/2023 6:45 PM CDT): Bp is stable/in acceptable range for any co-morbidities. Encouraged to limit sodium intake and exercise for weight control. Continue spironolactone and Tribenzor 10/09/11.5 Assessment & Plan (10/12/2022 3:43 PM CDT): Continue jrpolsvsic-fiomyzrtri-IBAW combination pill. Record at home blood pressure [...] diuretic. Assessment & Plan (04/06/2022 8:47 PM BRAIN PICKER): Encouraged to limit sodium intake and exercise [...] tabs. Assessment & Plan (06/03/2020 9:22 AM BRAIN PICKER): Bp is stable/in acceptable range for any co-morbidities. Encouraged to limit sodium intake and exercise for weight control. Continue losartan Assessment & Plan (05/29/2020 8:30 PM BRAIN PICKER): Continue losartan. Cough has resolved. Assessment & [...] 08/04/2015 Assessment & Plan (05/25/2024 10:18 PM BRAIN PICKER): Continue per Psychiatry. She is anxious about these diagnosis possibilities but reassured her this is not cardiac chest pain and that we will treat the musculoskeletal condition appropriately. She is to call if she has any other concerns or problems Assessment & Plan (10/14/2023 6:45 PM CDT): Continue per Psychiatry. She is seeing Dr. Barton in [place]. She is on Klonopin p.r.n. BuSpar 30 [...] sxs. Assessment & Plan (06/03/2020 9:24 AM BRAIN PICKER): Continue per Dr. Rodriguez Assessment & Plan (05/29/2020 8:32 PM BRAIN PICKER): Continue per psychiatrist. Assessment & Plan (11/28/2019 [...] 07/06/2022 Assessment & Plan (04/06/2022 8:45 PM BRAIN PICKER): Discussed the patient's BMI. The BMI is above average. BMI management plan is completed. BMI Follow-up includes: nutrition counseling, exercise counseling and education provided. Patient has an obesity-related condition (not limited to: hypertension, obstructive sleep apnea, osteoarthritis, hyperlipidemia, diabetes, etc.). Therefore, morbid obesity may be documented for patients with a BMI between 35.00-39.99. Diarrhea 05/25/2021 10/06/2021 Assessment & Plan (05/25/2021 7:17 PM BRAIN PICKER): Brat diet. Push fluids and observe for [...] 10/06/2021 Assessment & Plan (05/25/2021 7:17 PM BRAIN PICKER): Patient to presume positive COVID/FLU until results are available and plan to self isolate for up to 10 days from the onset of sxs. Check COVID/FLU test thru [facility] collection site in [place]. Let pt know the newest CDC recommendations [...] 021 Assessment & Plan (06/03/2020 8:55 AM BRAIN PICKER): Obesity is unchanged. Discussed the patient's BMI. The BMI is above average. BMI management plan is completed. BMI Follow-up includes: nutrition counseling, exercise counseling and education provided. Morbid obesity with BMI of 40.0-44.9, adult 06/03/2020 07/08/2020 Assessment & Plan (06/03/2020 9:24 AM BRAIN PICKER): Obesity is unchanged. Discussed the patient's BMI. The BMI is above average. BMI management plan is completed. BMI Follow-up includes: nutrition counseling, exercise counseling and education provided. Annual physical exam 05/29/2020 021 Assessment & Plan (05/29/2020 8:32 PM BRAIN PICKER): Encouraged healthy lifestyle, good nutrition and exercise. Encouraged Calcium and Vitamin D and weight bearing exercise for bone health. Reviewed immunizations Reviewed age appropirate screenings. Morbid obesity with BMI of 40.0-44.9, adult 05/29/2020 05/29/2020 Obesity, morbid, BMI 40.0-49.9 05/26/2020 06/03/2020 Assessment & Plan (05/29/2020 8:31 PM BRAIN PICKER): Obesity is unchanged. Discussed the patient's BMI. [...] counseling and education provided. Anxiety 02/18/2016 07/17/2019 Immunizations Immunization Administration Dates Next Due HPV, Quadrivalent 08/04/2015 Influenza, Quadrivalent, Rec ombinant, Egg Free, Preservative Free, Intramuscular 02/12/2020,01/31/2018 Influenza, Quadrivalent, Spl it, Preservative Free, Intramuscular 02/21/2023,02/25/2022,02/17/2021,01/18,01/25/2017 Influenza, Trivalent, IM (MDV) 01/12/2014,2012 Influenza, Unspecified 02/21/2023,2022(Deferred: Patient Refused),02/25/2022,01/21/2020 Moderna SARS-CoV-2 Monovalen t Vaccination (12+ YRS) 07/19/2020,06/21/2020 Pfizer Sars-Cov-2 Bivalent V accination (12+ YRS) 02/25/2022 TD Preservative Free 08/03/2012 Tdap 10/04/2023,02/20/2013,08/03/2012 Varicella 06/07/2019,05/01/2019 Social History Tobacco Use Types Packs/Day Years [...] on file Legal Sex Female 11:50 AM BRAIN PICKER Gender Identity Not on file Sexual Orientation Straight 05/18/2020 1: 58 PM BRAIN PICKER Occupation Industry Job Start Date Job End Date We[employer] Not on file Not on file Not on file Last Filed Vital Signs Vital Sign Reading Time Taken Comments Blood Pressure 126/84 05/15/2024 9:49 AM BRAIN PICKER Pulse 91 05/15/2024 9:49 AM BRAIN PICKER Temperature 36.8 C (98.2 F) 05/15/2024 9:49 AM BRAIN PICKER Respiratory Rate 16 10/12/2022 7:22 AM CDT Oxygen Saturation 97% 05/15/2024 9:49 AM BRAIN PICKER Inhaled Oxygen Concentration - - Weight 122.4 kg (269 lb 14.4 oz) 05/15/2024 9:49 AM BRAIN PICKER Height 172.7 cm (5' 8 ) 05/15/2024 9:49 AM BRAIN PICKER Body Mass Index 41.04 05/15/2024 9:49 AM BRAIN PICKER Plan of Treatment Not on file Medical Devices Implanted Type Area Rn Psych Device Identifier Shelf Expiration Date Model / Serial / Lot [employer] [id number] Seprafilm 6x5in Barrier Adhesion Sterile Disposable Latex Free - [id number] Implanted:Qty: 1 on 10/28/2020 by Mike Chiu MD at [facility] N/A: Head [employer] 04/08/2023 [id number] / / [id number] Procedures Procedure Name Priority Date/Time Associated Diagnosis Comments VITAMIN D 25 HYDROXY Routine 05/15/2024 10:57 AM BRAIN PICKER BMI 40.0-44.9, adult (HCC) Morbid obesity (HCC) VITAMIN B12 Routine 05/15/2024 10:57 AM BRAIN PICKER Fatigue, unspecified type TSH Routine 05/15/2024 10:57 AM BRAIN PICKER Fatigue, unspecified type LIPID PANEL Routine 05/15/2024 10:57 AM BRAIN PICKER Lipid screening HEMOGLOBIN A1C Routine 05/15/2024 10:57 AM BRAIN PICKER Diabetes mellitus screening COMPREHENSIVE METABOLIC PANEL Routine 05/15/2024 10:57 AM BRAIN PICKER Essential hypertension CBC WITH AUTO DIFFERENTIAL Routine 05/15/2024 10:57 AM BRAIN PICKER Fatigue, unspecified type HM PAP SMEAR WITH HPV Routine 09/06/2023 10:53 AM CDT from Last 3 Months or Most Recently Relevant to Health Maintenance Results * CBC with auto differential (05/15/2024 10:57 AM BRAIN PICKER) WBC 5.1 3.4 - 10.8 x10E3/uL [facility] [...] - 01 Blood 05/15/2024 10:5 7 AM BRAIN PICKER 05/15/2024 Narrative [facility] - 05/16/2024 7:36 AM BRAIN PICKER Performed at: [address] [id number] De Alcholizer: David Cho PhD, Phone: [phone] Natalie PEREZ LAB BLOOD ORDERABLES Final Result [facility] * Vitamin D 25 hydroxy (05/15/2024 10:57 AM BRAIN PICKER) [facility] Vitamin D, 25-Hydroxy 37.8 30.0 - 100.0 ng/mL [facility] - Comment: Vitamin D deficiency has been defined by the [place] of Medicine and an Endocrine Society practice guideline as a level of serum 25-OH vitamin D less than 20 ng/mL (1,2). The Endocrine Society went on to further define vitamin D insufficiency as a level between 21 and 29 ng/mL (2). 1. IOM ([place] of Medicine). 2010. Dietary reference intakes for calcium and D. [place]: The National Academies Press. 2. Master MF, Julio DEL ANGEL, Nori WILDE, et al. Evaluation, treatment, and prevention of vitamin D deficiency: an Endocrine Society clinical practice guideline. JCEM. 2010; 96(7):1911-30. Blood 05/15/2024 10:5 7 AM BRAIN PICKER 05/15/2024 Narrative [facility] - 05/16/2024 7:36 AM BRAIN PICKER Performed at: [facility] [address] [id number] De Alcholizer: David Cho PhD, Phone: [phone] Natalie PEREZ LAB BLOOD ORDERABLES Final Result Performing Organization Address [facility] Co de Phone Number [facility] - 01 * TSH (05/15/2024 10:57 AM BRAIN PICKER) [facility] TSH 1.220 0.450 - 4.500 uIU/mL [facility] - 01 Blood 05/15/2024 10:5 7 AM BRAIN PICKER 05/15/2024 Narrative [facility] - 05/16/2024 7:36 AM BRAIN PICKER Performed at: [address] [place] [id number] De Alcholizer: David Cho PhD, Phone: [phone] Natalie PEREZ LAB BLOOD ORDERABLES Final Result Performing Organization Address [facility] de Phone Number [facility] - 01 * Hemoglobin A1c (05/15/2024 10:57 AM BRAIN PICKER) [facility] Hgb A1C 5.6 4.8 - 5.6 % [facility] - Comment: Prediabetes: 5.7 - 6.4 Diabetes: >6.4 Glycemic control for adults with diabetes: <7.0 Blood 05/15/2024 10:5 7 AM BRAIN PICKER 05/15/2024 Narrative [facility] - 05/16/2024 7:36 AM BRAIN PICKER Performed at: [address] [place] [id number] De Alcholizer: David Cho PhD, Phone: [phone] Natalie PEREZ LAB BLOOD ORDERABLES Final Result Performing Organization Address [facility] de Phone Number [facility] - 01 * Vitamin B12 (05/15/2024 10:57 AM BRAIN PICKER) [facility] Vitamin B12 422 232 - 1,245 pg/mL [facility] - 01 Blood 05/15/2024 10:5 7 AM BRAIN PICKER 05/15/2024 Narrative [facility] - 05/16/2024 7:36 AM BRAIN PICKER Performed at: [address] [id number] De Alcholizer: David Cho PhD, Phone: [phone] Natalie PEREZ LAB BLOOD ORDERABLES Final Result Performing Organization Address [facility] de Phone Number [facility] - * (ABNORMAL) Lipid panel (05/15/2024 10:57 AM BRAIN PICKER) Cholesterol 183 100 - 199 mg/dL [facility] - 01 Triglycerides 78 0 - 149 mg/dL [facility] - 01 HDL Cholesterol 43 >39 mg/dL [facility] - 01 VLDL 15 5 - 40 mg/dL [facility] - 01 LDL, calculated 125(H) 0 - 99 mg/dL [facility] - 01 Blood 05/15/2024 10:5 7 AM BRAIN PICKER 05/15/2024 Narrative [facility] - 05/16/2024 7:36 AM BRAIN PICKER Performed at: [address] [id number] De Alcholizer: David Cho PhD, Phone: [phone] Natalie PEREZ LAB BLOOD ORDERABLES Final Result Performing Organization Address [facility] Phone Number [facility] - * Comprehensive metabolic panel (05/15/2024 10:57 AM BRAIN PICKER) Glucose 91 70 - 99 mg/dL [facility] - 01 BUN 11 6 - 20 mg/dL [facility] - 01 Creatinine, Serum 0.94 0.57 - 1.00 mg/dL [facility] - 01 eGFR 82 >59 mL/min/1.73 [facility] - 01 BUN/creat ratio 12 - [facility] - 01 Sodium 139 134 - [...] - 01 Blood 05/15/2024 10:5 7 AM BRAIN PICKER 05/15/2024 Narrative [facility] - 05/16/2024 7:36 AM BRAIN PICKER Performed at: - [address] [id number] De Alcholizer: David Cho PhD, Phone: [phone] Natalie PEREZ LAB BLOOD ORDERABLES Final Result [facility] - 01 * HM PAP SMEAR WITH HPV (09/06/2023 10:53 AM CDT) Scribed Pap Smear w/HPV Normal Historical Provider HEALTH MAINTENANCE Edited Result - Final from Last 3 Months or Most Recently Relevant to [place] [address] [facility] [employer] Advance Directives For more information, please contact: [phone] Documents on File Type Date Recorded Patient Cycle Counter Expl anation ADVANCE DIRECTIVE 10/28/2020 5:53 AM Care Teams Stylist Assistant Relationship Specialty Start Date End Date Natalie Harper PA [address] [place] [address] PCP - General Internal Medicine 07/17/19
--- OUTSIDE RECORDS SUMMARY | 2024-06-25 00:23 | XMS_ITS ---
Author Organization [facility] [employer] Address [address] [place] [address] Care Team Providers Care Icicle Machine Operator Name Role Phone Unavailable Primary Care Physician Unavailab le Medications Name Start Date Expiration Date SIG Comments Mirena 21 mcg/24 hr (up to 8 years) 52 mg intrauterine device 03/14/2024 03/15/2024 place 1 device by intrauterine route once Payers Insurance Name Company Name Plan Name Plan Number Policy Number [place] [id number] N/A History of Encounters Visit Date Visit Type Provider 03/13/2024 My-IUD Tele-Med Consult Dr. Alan French MD
--- OUTSIDE RECORDS SUMMARY | 2024-06-25 00:23 | XMS_ITS | Encounter Summary ---
Author Organization [facility] Address [address] [place] [address] Phone Care Team Providers Care Telesales Manager Name Role Phone Fredis Valiente DO Primary Care Provider + Natalie Harper Primary Care Provider +1- [phone] Encounter Details Date Type Department Care Team (Late st Contact Info) Description 08/30/2017 Orders Only [facility] ProviderErik MD [facility] [place] [address] Social History Tobacco Use Types Packs/Day Years Used Date Smoking Tobacco: Never Comments Unknown Sex and Gender Information Value Date Recorded Sex Assigned at Not on file Legal Sex Female 11:50 AM STAFF NURSE MIDWIFE Gender Identity Not on file Sexual Orientation Straight 05/18/2020 1: 58 PM STAFF NURSE MIDWIFE documented as of this encounter Plan of Treatment Not on file documented as of this encounter Procedures Procedure Name Priority Date/Time Associated Diagnosis Comments CYTOLOGY 08/30/2017 12:00 AM CDT documented in this encounter Results * CYTOLOGY (08/30/2017 12:00 AM CDT) Narrative 08/30/2017 12:00 AM CDT Ordered by an unspecified provider. us Historical Provider LAB CYTOLOGY ORDERABLES F inal Result documented in this encounter Visit Diagnoses Not on filedocumented in this encounter Additional Health Concerns Infection Onset Date Last Indicated Resolved Time COVID: Suspected 05/23/2021 05/24/2021 05/25/2021 4:55 AM STAFF NURSE MIDWIFE COVID: Suspected 03/08/2022 03/08/2022 03/08/2022 8:56 AM STAFF NURSE MIDWIFE COVID: Suspected 04/06/2022 04/06/2022 04/06/2022 7:56 AM STAFF NURSE MIDWIFE COVID19 04/06/2022 04/06/2022 04/16/2022 3:05 AM STAFF NURSE MIDWIFE COVID: Recovered Comment:Added based on recent COVID infection. 04/16/2022 04/17/2022 07/15/2022 3:05 AM C DT COVID: Suspected 01/10/2023 01/10/2023 01/10/2023 11:01 AM CDT documented as of this encounter Care Teams Telesales Manager Relationship Specialty Start Date End Date Fredis Valiente DO PCP - General Family Medicine 09/30/18 07/16/19 Natalie Harper PA [address] [address] PCP - General Internal Medicine 07/17/19 documented as of this encounter
--- OUTSIDE RECORDS SUMMARY | 2024-06-25 00:23 | XMS_ITS | Clinical Summary ---
Author Organization [facility] Address [address] [place] [address] Care Team Providers Care Skiver Welt End Name Role Phone Natalie Harper Primary Care Provider [phone] Allergies Active Allergy Reactions Criticality Noted Date Comments Cephalexin Hives 05/09/2024 Penicillins Hives 05/09/2024 Encounters Date Type Department Care Team Description 05/09/2024 3:27 PM MOLD PRESS OPERATOR - 05/09/2024 6:35 PM MOLD PRESS OPERATOR Emergency [facility] [place] [address] Archie Saba PA Musculoskeletal Pain; Anxiety Discharge Disposition: Home or Self Care (Routine Discharge) 05/09/2024 Travel from Last 3 Months Social History Tobacco Use Types Packs/Day Years Used Date Smoking Tobacco: Never Smokeless Tobacco: Never Tobacco Cessation:Counseling Given: Not Answered Alcohol Use Standard Drinks/Week Comments Never 0 (1 standard drink = 0.6 oz pur e alcohol) Comments No Sex and Gender Information Value Date Recorded Sex Assigned at Female 05/09/2024 3:25 PM MOLD PRESS OPERATOR Legal Sex Female 4:51 PM CDT Gender Identity Not on file Sexual Orientation Not on file Last Filed Vital Signs Vital Sign Reading Time Taken Comments Blood Pressure 141/93 05/09/2024 6:00 PM MOLD PRESS OPERATOR Pulse 101 05/09/2024 6:00 PM MOLD PRESS OPERATOR Temperature 36.6 C (97.8 F) 05/09/2024 3:13 PM MOLD PRESS OPERATOR Respiratory Rate 18 05/09/2024 6:00 PM MOLD PRESS OPERATOR Oxygen Saturation 100% 05/09/2024 6:00 PM MOLD PRESS OPERATOR Inhaled Oxygen Concentration - - Weight 123.4 kg (272 lb) 05/09/2024 3:13 PM MOLD PRESS OPERATOR Height 172.7 cm (5' 8 ) 05/09/2024 3:13 PM MOLD PRESS OPERATOR Body Mass Index 41.36 05/09/2024 3:13 PM MOLD PRESS OPERATOR Plan of Treatment Health Maintenance Due Date Last Done Comments Cervical Cancer Screening Pap Smear (Age 30 to 64) Every 3 Years 1990 Annual Physical 1993 Hepatitis C 2008 Hepatitis B Vaccines (1 of 3 - 19+ 3-dose series) 2009 HPV Vaccines (2 - 3-dose series) 09/01/2015 08/04/2015 Cervical Cancer Screening Pap with HPV Testing (Age 30 to 64) Every 5 Years 2020 Cervical Cancer Screening with HPV 2020 COVID-19 Vaccine ( - season) 2023 02/25/2022, 03/16/2021, 07/19/2020, Additional history exists DTaP, Tdap and Td Vaccines (5 - Td or Tdap) 10/03/2033 10/04/2023, 02/20/2013, 08/03/2012, Additional history exists Influenza Adult Completed 02/18/2024, 1104/2022, 02/25/2022, Additional history exists Meningococcal B Vaccine Aged Out No l onger eligible based on patient's age to complete this topic Meningococcal Vaccine Aged Out No wilder jean eligible based on patient's age to complete this topic Pneumococcal Vaccine: Pediatrics (0 to 5 Years) and At-Risk Patients (6 to 64 Years) Aged Out No longer eligible based on patient's age to complete this topic RSV Immunizations Under 20 Months Aged Out No longer eligible based on patient's age to complete this topic Procedures Procedure Name Priority Date/Time Associated Diagnosis Comments XR CHEST PORTABLE STAT 05/09/2024 3:4 8 PM MOLD PRESS OPERATOR POCT URINE (BACK OFFICE) STAT 05/09/2024 3:45 PM MOLD PRESS OPERATOR D-DIMER, QUANTITATIVE STAT 05/09/2024 3:32 PM MOLD PRESS OPERATOR PROTHROMBIN TIME, VENOUS STAT 05/09/2024 3:32 PM MOLD PRESS OPERATOR TROPONIN, QUANT STAT 05/09/2024 3:32 PM MOLD PRESS OPERATOR COMPREHENSIVE METABOLIC PANEL STAT 05/09/2024 3:32 PM MOLD PRESS OPERATOR CBC W/DIFF AUTOMATED STAT 05/09/2024 3:32 PM MOLD PRESS OPERATOR ECG 12-LEAD STAT 05/09/2024 3:29 PM MOLD PRESS OPERATOR from Last 3 Months Results * XR CHEST PORTABLE (05/09/2024 3:48 PM MOLD PRESS OPERATOR) Anatomical Region Laterality Modality Chest Radiographic Cassandra ging 05/09/2024 3:49 PM MOLD PRESS OPERATOR Impressions 05/09/2024 3:49 PM MOLD PRESS OPERATOR IMPRESSION: Negative chest Ordered By: CHANTALE FINNEY Interpreted By: Ed Guerra MD, 05/09/2024 3:49 PM Narrative 05/09/2024 3:49 PM MOLD PRESS OPERATOR [place] [id number] SINGLE VIEW OF THE CHEST Clinical history: Chest pain Comparison: None A single view of the chest demonstrates the cardiac silhouette to be normal in size and appearance. The pulmonary vessels appear normal. The Lungs are clear. No consolidations or effusions are seen. Procedure Note Ed Guerra MD - 05/09/2024 [place] [id number] SINGLE VIEW OF THE CHEST Clinical history: Chest pain Comparison: None A single view of the chest demonstrates the cardiac silhouette to benormal in size and appearance. The pulmonary vessels appear normal. TheLungs are clear. No consolidations or effusions are seen. IMPRESSION: Negative chest Ordered By: CHANTALE FINNEY Interpreted By: Ed Guerra MD, 05/09/2024 3:49 PM Result [facility] Chantale Finney ROADING ENGINEER GENERAL IMAGING Final Result * POCT urine (05/09/2024 3:45 PM MOLD PRESS OPERATOR) URINE HCG TEST NEGATIVE Internal Control: VALID Chantale Finney ROADING ENGINEER POINT OF CARE TEST ORDERABLES Final Result * PROTIME/INR, VENOUS (05/09/2024 3:32 PM MOLD PRESS OPERATOR) Pathologist [facility] PROTIME 12.1 10.2 - 12.9 SEC 05/09/2024 4:23 PM MOLD PRESS OPERATOR [facility] INR 1.1 05/09/2024 4:23 PM MOLD PRESS OPERATOR [facility] Comment: Recommended INR Therapeutic Goals: 2.0-3.0 Routine Therapy 2.5-3.5 Mechanical Prosthetic Valves (High Risk) 05/09/2024 3:32 PM MOLD PRESS OPERATOR Chantale Finney ROADING ENGINEER LABORATORY Final Result [facility] [address] [place] [id number], [place] [phone] * (ABNORMAL) COMPREHENSIVE METABOLIC PANEL (05/09/2024 3:32 PM MOLD PRESS OPERATOR) GLUCOSE 102(H) 70 - 99 MG/DL 05/09/2024 4:26 PM MOLD PRESS OPERATOR [facility] BUN 9 7 - 18 MG/DL 05/09/2024 4:26 PM MOLD PRESS OPERATOR [facility] CREATININE S/P/B 0.93 0.55 - 1.02 MG/DL 05/09/2024 4:26 PM MOLD PRESS OPERATOR [facility] SODIUM S/P/B 137 136 - 145 MMOL/L 05/09/2024 4:26 PM [facility] POTASSIUM S/P/B 3.3(L) 3.5 - 5.1 MMOL/L 05/09/2024 4:26 PM [facility] CHLORIDE S/P/B 105 97 - 115 MMOL/L 05/09/2024 4:26 PM [facility] CO2 27.4 21 - 32 MMOL/L 05/09/2024 4:26 PM [facility] CALCIUM S/P/B 9.2 8.5 - 10.1 MG/DL 05/09/2024 4:26 PM [facility] BILIRUBIN TOTAL S/P/B 0.2 0.2 - 1.2 MG/DL 05/09/2024 4:26 PM [facility] Comment: THIS ASSAY IS NOT RECOMMENDED FOR PATIENTS UNDERGOING TREATMENT WITH ELTROMBOPAG DUE TO THE POTENTIAL FOR FALSELY ELEVATED RESULTS. TOTAL PROTEIN S/P/B 7.1 6.4 - 8.2 G/DL 05/09/2024 4:26 PM [facility] ALBUMIN S/P/B 3.6 3.4 - 5.0 G/DL 05/09/2024 4:26 PM [facility] AST 12(L) 15 - 37 U/L 05/09/2024 4:26 PM [facility] ALT 19 14 - 55 U/L 05/09/2024 4:26 PM [facility] ALKALINE PHOSPHATASE S/P/B 72 50 - 136 U/L 05/09/2024 4:26 PM [facility] ANION GAP 4.6 2 - 10 MMOL/L 05/09/2024 4:26 PM [facility] BUN CREATININE RATIO 9.7 6 - 26 05/09/2024 4:26 PM MOLD PRESS OPERATOR [facility] A/G RATIO 1.0 1.0 - 2.0 RATIO 05/09/2024 4:26 PM MOLD PRESS OPERATOR [facility] GFR ESTIMATE 83(L) >90 ML/MIN/1.7 3 M2 05/09/2024 4:26 PM MOLD PRESS OPERATOR [facility] Comment: NOTE: eGFR is not calculated for patients <18 years of age or gender unknown. This is an estimated GFR calculation using the new CKD EPI creatinine equation without race and so does not require a correction factor for race. This estimated GFR should not be used for calculating drug doses. 05/09/2024 3:32 PM MOLD PRESS OPERATOR Chantale Finney NP LABORATORY Final Result Performing Organization Address [facility]/RUST de Phone Number [facility] [address] [place] [phone], * D-DIMER, QUANTITATIVE (05/09/2024 3:32 PM MOLD PRESS OPERATOR) D-DIMER 266 0 - 500 ng{FEU}/mL 05/09/2024 4:23 PM MOLD PRESS OPERATOR [facility] Comment: D-Dimer values less than or equal to 500 ng/mL FEU have a negative predictive value of >95% for exclusion of deep vein thrombosis and pulmonary embolism. In patients over 50 (who tend to have higher normal baseline D-Dimer values), recent studies suggest age-adjusted D-Dimer cutoff values (calculated as: age [years] x 10 ng/mL) result in equivalent outcomes and no additional false negative findings. 05/09/2024 3:32 PM MOLD PRESS OPERATOR Chantale Finney NP LABORATORY Final Result Performing Organization Address City/[facility]/ZIP Co de Phone Number [facility] [address] [place] [address], * CBC W/DIFF AUTOMATED (05/09/2024 3:32 PM MOLD PRESS OPERATOR) [facility] Signature WBC 7.48 4.5 - 11.0 x10'3/uL 05/09/2024 4:04 PM [facility] RBC 4.45 4.20 - 5.40 x10'6/uL 05/09/2024 4:04 PM [facility] HGB 13.2 12.0 - 16.0 G/DL 05/09/2024 4:04 PM [facility] HCT 38.8 38.0 - 48.0 % 05/09/2024 4:04 PM [facility] MCV 87.2 81.0 - 99.0 FL 05/09/2024 4:04 PM [facility] MCH 29.7 27.0 - 31.0 PG 05/09/2024 4:04 PM [facility] MCHC 34.0 32.0 - 36.0 G/DL 05/09/2024 4:04 PM [facility] RDW 12.9 11.5 - 14.5 % 05/09/2024 4:04 PM [facility] PLT 271 130 - 400 x10'3/uL 05/09/2024 4:04 PM [facility] MPV 10.9 9.3 - 12.2 FL 05/09/2024 4:04 PM [facility] DIFFERENTIAL TYPE AUTOMATED DIFFERENTIAL 05/09/2024 4:04 PM [facility] NEUTROPHILS % 66.6 % 05/09/2024 4:04 PM [facility] LYMPHOCYTES % 24.5 % 05/09/2024 4:04 PM [facility] MONOCYTES % 6.6 % 05/09/2024 4:04 PM MOLD PRESS OPERATOR [facility] EOSINOPHILS 1.1 % 05/09/2024 4:04 PM MOLD PRESS OPERATOR [facility] BASOPHILS 0.8 % 05/09/2024 4:04 PM MOLD PRESS OPERATOR [facility] IMMATURE GRANS % 0.4 % 05/09/19 4:04 PM MOLD PRESS OPERATOR [facility] ABS. NEUTROPHILS 4.99 1.80 - 7.70 x10'3/uL 05/09/2024 4:04 PM MOLD PRESS OPERATOR [facility] ABS. LYMPHOCYTES 1.83 1.00 - 4.80 x10'3/uL 05/09/2024 4:04 PM MOLD PRESS OPERATOR [facility] ABS. MONOCYTES 0.49 0.24 - 0.86 x10'3/uL 05/09/2024 4:04 PM MOLD PRESS OPERATOR [facility] ABS. EOSINOPHILS 0.08 0.04 - 0.36 x10'3/uL 05/09/2024 4:04 PM MOLD PRESS OPERATOR [facility] ABS. BASOPHILS 0.06 0.01 - 0.08 x10'3/uL 05/09/2024 4:04 PM MOLD PRESS OPERATOR [facility] ABS. IMMATURE GRANULOCYTES 0.03 0.00 - 0.49 x10'3/uL 05/09/2024 4:04 PM [facility] 05/09/2024 3:32 PM MOLD PRESS OPERATOR us Chantale Finney NP LABORATORY Final Result [facility] [address] [place] [address], [place] [phone] * TROPONIN, QUANT (05/09/2024 3:32 PM MOLD PRESS OPERATOR) TROPONIN I HIGH SENSITIVITY 3 <54 ng/L 05/09/2024 4:26 PM MOLD PRESS OPERATOR [facility] Comment: HIGH DOSES OF BIOTIN, TROPONIN-SPECIFIC AUTOANTIBODIES, AND ANTIBODY THERAPY CONTAINING HAMA MAY INTERFERE WITH THIS TEST RESULT. CORRELATION TO CLINICAL HISTORY AND PRESENTATION RECOMMENDED. 05/09/2024 3:32 PM MOLD PRESS OPERATOR us Chantale Finney NP LABORATORY Final Result [facility] [address] [place] [address], [place] [phone] * ECG 12 lead (05/09/2024 3:29 PM MOLD PRESS OPERATOR) 05/09/2024 3:29 PM MOLD PRESS OPERATOR Narrative [facility] RAD - 05/09/2024 3:27 PM MOLD PRESS OPERATOR [address] Test Date: 2024-05-09 Pat Name: ARASH WOODWARD Department: 41 Room: Gender: Female Broomcorn Grader: [id number] : 1990 Requested By: CHANTALE FINNEY Order Number: [id number] Reading MD: Carmen Fabian Measurements Intervals [place] Rate: 114 P: 61 [place]: 177 QRS: 29 QRSD: 96 T: 36 QT: 307 QTc: 423 Interpretive Statements SINUS TACHYCARDIA No previous ECG available for comparison PRESS OPERATOR Procedure Note Carmen Fabian MD - 05/09/[address] Test Date: 2024-05-09 Pat Name: ARASH WOODWARD Department: 41 Room: Gender: Female Broomcorn Grader: [id number] : 1990 Requested By: CHANTALE FINNEY Order Number: [id number] Reading MD: Carmen Fabian Measurements Intervals [place] Rate: 114 P: 61 [place]: 177 QRS: 29 QRSD: 96 T: 36 QT: 307 QTc: 423 Interpretive Statements SINUS TACHYCARDIA No previous ECG available for comparison PRESS OPERATOR us Chantale Finney ROADING ENGINEER ECG ORDERABLES Final Result [facility] RAD from Last 3 Months Additional Health Concerns Infection Onset Date Last Indicated MRSA 11/29/2016 11/29/2016 Insurance [facility] Care Teams Skiver Welt End Relationship Specialty Start Date End Date Natalie Harper PA [address] [place] [address] PCP - General PHYSICIAN PYTHON PROGRAMMER 05/09/24 06/25/24
--- OUTSIDE RECORDS SUMMARY | 2024-06-25 00:23 | XMS_ITS ---
Author Organization [facility] [employer] [facility] Address [address] [facility] [address] [place] [address] Care Team Providers Care Section 8 Property Manager Name Role Phone Bea Harper PA-C Primary Care Provider Unav ailable Niko, Thena Unavailable [phone] REASON FOR VISIT Refills Social History Sex Assigned At : Social History Observation Description Sex Assigned At Female Encounters Encounter Location Date Provider Diagnosis [facility] [employer] [facility] [address] [facility] [address] [place] [address] 03/26/2024 Thena Niko Plan Of Treatment Next Appt Details Provider Name:Unique Black, 07/10/2024 09:00:00 AM, [address], [facility] [address], [place], [address], Progress Notes * ARASH WOODWARD MDOB: [birth year] (33 yo F)Acc No.[id number]:03/26/2024 Patient: ARASH GUY :1990 A ge:33 Y S ex:Female Address:[address], [place], [address] * true * Date: Generated for Printi ng/Faxing/eTransmitting on: 0 06/25/2024 12:23 AM HAND SIGN WRITER
--- OUTSIDE RECORDS SUMMARY | 2024-06-25 00:24 | XMS_ITS ---
Author Organization [facility] [employer] [facility] Address [address] [facility] [address] [place] [address] Care Team Providers Care Drug Coordinator Name Role Phone Bea Harper PA-C Primary Care Provider Unav ailable Niko, Thena Unavailable [phone] REASON FOR VISIT Appt cancellation Social History Sex Assigned At : Social History Observation Description Sex Assigned At Female Encounters Encounter Location Date Provider Diagnosis [facility] [employer] [facility] [address] [facility] [address] [place] [address] 04/09/2024 Thena Niko Plan Of Treatment Next Appt Details Provider Name:Unique Black, 07/10/2024 09:00:00 AM, [address], [facility] [address], [place], [address], Progress Notes * ARASH WOODWARD MDOB: [birth year] (33 yo F)Acc No.[id number]:04/09/2024 Patient: ARASH GUY :1990 A ge:33 Y S ex:Female [address], [address] * true * Date: Generated for Printi ng/Faxing/eTransmitting on: 0 06/25/2024 12:23 AM METAL DRESSER
--- NOTE | 2024-06-25 11:49 | PM.IMHP ---
H&P: HPI History of Present Illness Date/Time: 06/25/24 11:49 Chief Complaint: Desired sterility Narrative: 33 y/o interested in permanent contraception. She has a Mirena IUD to control menorrhagia, and she is happy with this. But she would like laparoscopic bilateral salpingectomies for permanent sterility. Review of Systems Review of Systems: All systems reviewed & are unremarkable except as noted in HPI and below PMFSH Past Medical History Medical History History of MRSA infection History of Chiari malformation History of chronic hypertension History of bipolar disorder Surgical History Surgical History History of craniectomy History of delivery Social History Social History Smoking status: Never smoker Substance use type: marijuana Living arrangements: with family Spiritual care concerns: No Meds Home Medications and Allergies Home Medications ?Medication ?Instructions ?Recorded ?Confirmed ?Type bupropion HCl 150 mg 24 hr tablet, 150 mg PO DAILY 06/12/24 06/12/24 History extended release bupropion HCl 300 mg 24 hr tablet, 300 mg PO DAILY 06/12/24 06/12/24 History extended release buspirone 10 mg tablet 10 mg PO BID 06/12/24 06/12/24 History buspirone 30 mg tablet 30 mg PO HS 06/12/24 06/12/24 History clonazepam 0.5 mg tablet 0.5 mg PO PRN 06/12/24 06/12/24 History lamotrigine 100 mg tablet 100 mg PO BID 06/12/24 06/12/24 History lamotrigine 200 mg tablet 200 mg PO HS 06/12/24 06/12/24 History multivitamin (Daily Multi-Vitamin 1 tablet PO DAILY 06/12/24 06/12/24 History tablet) olmesartan 20 mg-amlodipine 5 1 tablet PO DAILY 06/12/24 06/12/24 History mg-hydrochlorothiazide 12.5 mg tablet spironolactone 50 mg tablet 50 mg PO DAILY 06/12/24 06/12/24 History Allergies Allergy/AdvReac Type Severity Reaction Status Date / Time amoxicillin Allergy Mild RASH Verified 06/12/24 10:21 cephalexin Allergy Unknown RASH Unverified 06/12/24 10:21 Penicillins Allergy Unknown RASH Unverified 06/12/24 10:21 Exam Const: Orientation/consciousness: patient oriented x3 Other: Well-developed, well-nourished female in no acute distress. Neck: Thyroid: thyroid normal Lymphatic: no lymphadenopathy noted (in neck, axilla or inguinal nodes) Resp: Effort & Inspection: normal respiratory effort Auscultation: clear to auscultation bilaterally Cardio: Rate: regular rate Rhythm: regular rhythm Heart sounds: S1 normal heart sound present and S2 normal heart sound present GI: Other: ABD: Soft, nontender, nondistended. No guarding or rebound tenderness. No hepatosplenomegaly. : General: Yes no CVA tenderness Other: External genitalia: normal female hair distribution, without lesion. Urethral meatus: no lesion, non prolapsed. Bladder: no mass, nontender Vagina: well-estrogenized, without lesion or discharge. No cystocele or rectocele. Cervix: no lesion or discharge. IUD strings noted. Uterus: small, anteverted, freely mobile, nontender Adnexa: no mass or tenderness. Anus/perineum: no lesions, nontender Back/Spine/Pelvis: Back: no CVA tenderness Skin: General skin exam: normal color and no rashes or lesions noted Neuro: General: patient oriented x3 Extrem: Other: Extremities: nontender with no edema Psych: Mental Status: mental status grossly normal Affect: normal affect Assessment and Plan Assessment and plan (1) Unwanted fertility: Code(s): Z30.09 - Encounter for other general counseling and advice on contraception Status: Acute Assessment and Plan: A: Desired sterility. P: She understands there are temporary methods of contraception available to her. She understands that there are nonsurgical options as well as surgical options. She understands that tubal sterilization will render her permanently sterile. She understands that there is a failure rate associated with tubal sterilization, as well as an inherent ectopic gestation risk. Furthermore, she understands risks of surgery to include risks of anesthesia, risks of pain, infection, bleeding, blood products, thromboembolic phenomena and damage to adjacent structures such as bowel, bladder, ureters, blood vessels and nerves. She understands all these risks and elects to proceed with laparoscopic bilateral salpingectomies.
--- NOTE | 2024-06-25 11:58 | WPDANESEPPF ---
Anes - Initial Pre Proc Eval Procedure: Operation Date: 06/25/24 13:30 Proposed Procedures p Laparoscopic Bilateral Salpingectomy - Jarred Pineda MD Date/Time: 06/25/24 11:58 Surgeon: Jarred Pineda MD Pre Op Diagnosis: Desire Sterilization Patient Data Age: 33 Gender: F Height: 1.73 m Weight: 122.5 kg Allergies Allergy/AdvReac Type Severity Reaction Status Date / Time amoxicillin Allergy Mild RASH Verified 06/12/24 10:21 cephalexin Allergy Unknown RASH Unverified 06/12/24 10:21 Penicillins Allergy Unknown RASH Unverified 06/12/24 10:21 Home Medications ?Medication ?Instructions ?Recorded ?Confirmed ?Type bupropion HCl 150 mg 24 hr tablet, 150 mg PO DAILY 06/12/24 06/12/24 History extended release bupropion HCl 300 mg 24 hr tablet, 300 mg PO DAILY 06/12/24 06/12/24 History extended release buspirone 10 mg tablet 10 mg PO BID 06/12/24 06/12/24 History buspirone 30 mg tablet 30 mg PO HS 06/12/24 06/12/24 History clonazepam 0.5 mg tablet 0.5 mg PO PRN 06/12/24 06/12/24 History lamotrigine 100 mg tablet 100 mg PO BID 06/12/24 06/12/24 History lamotrigine 200 mg tablet 200 mg PO HS 06/12/24 06/12/24 History multivitamin (Daily Multi-Vitamin 1 tablet PO DAILY 06/12/24 06/12/24 History tablet) olmesartan 20 mg-amlodipine 5 1 tablet PO DAILY 06/12/24 06/12/24 History mg-hydrochlorothiazide 12.5 mg tablet spironolactone 50 mg tablet 50 mg PO DAILY 06/12/24 06/12/24 History Patient hx anesthesia problems: none Family hx anesthesia problems: none Results Review: All pre-operative results and documents have been reviewed as part of the pre-operative evaluation. [facility] Past Medical History Medical History History of MRSA infection History of Chiari malformation History of chronic hypertension History of bipolar disorder Surgical History Surgical History History of craniectomy History of delivery Social History Social History Smoking status: Never smoker Substance use type: marijuana Living arrangements: with family Spiritual care concerns: No Anes - Eval Final PreProcedure Day of Procedure 06/25/24 11:58 Patient weight: morbidly obese Heart: regular rate and rhythm Lungs: clear to auscultation Airway: Mallampati scale class II Neurological: alert and oriented Last oral intake: >/= 8 hours ASA classification: III Emergent: no Anesthetic plan: proceed Anesthesia type and monitoring: general GIVS and standard monitoring Results Review: All pre-operative results and documents have been reviewed as part of the pre-operative evaluation. Informed Consent: The patient's anesthetic plan and its attendant risks and benefits were discussed with the patient/family/POA. Questions were solicited and answers provided to the satisfaction of the patient/family/POA.
[2024-06-25] MEDS: LACTATED RINGERS 1,000 ML 30 ML IV CONT ×2 (12:00→14:40)
--- NOTE | 2024-06-25 12:04 | WPDHPUPDATE1 ---
History and Physical Update Update Date/Time: 06/25/24 12:04 History and Physical has been reviewed, including an updated exam of the patient. There are NO changes in the patient's condition. Risks, benefits, and alternatives have been discussed and questions answered. Patient agrees to proceed with procedure.
[2024-06-25] MEDS: ACETAMINOPHEN 500 MG TABLET 1000 MG PO (12:27)
[2024-06-25] MEDS: KETOROLAC 15 MG/ML VIAL (*BKC) IV PUSH (12:27)
[2024-06-25] MEDS: SCOPOLAMINE 1 MG PATCH 1 PATCH TRANSDERM (12:27)
[2024-06-25 12:33] LABS: BEDSIDEPREGUCG Negative (Negative)
--- NOTE | 2024-06-25 13:58 | P.OP_ITS ---
Procedure Note - Detailed Date of Procedure 06/25/24 Pre-op Diagnosis Desired sterility Post-op Diagnosis Same Procedure Performed Laparoscopic bilateral salpingectomies Surgeon Jarred Pineda MD Anesthesia General Findings Small, 1 cm, functional-appearing cyst of right ovary. Normal-appearing uterus, tubes and ovaries. Unremarkable anterior and posterior cul de sac, bilateral round and uterosacral ligaments. Normal-appearing liver and gallbladder. Vermiform appendix not seen. Description of Procedure The patient was taken to the operating room where general endotracheal anesthesia was administered. She was prepared and draped in the usual sterile f ashion in dorsal lithotomy position. The bladder was drained with a red rubber catheter. A sterile speculum was placed into the vagina. The anterior lip of the cervix was grasped with a single-tooth tenaculum. The acorn uterine manipulator was placed. The speculum was withdrawn. Gloves were changed and attention was turned the abdomen. An infraumbilical skin incision was made with a scalpel. The abdomen was tented and a 5mm bladeless trocar was advanced under direct laparoscopic visualization. Pneumoperitoneum was administered using carbon dioxide gas. A survey of the pelvis and abdomen revealed the findings noted above. Second and third skin incisions were made in the midline above the symphysis pubis and in the left lower quadrant, and 5mm bladeless trocars were advanced under direct laparoscopic visualization. The fallopian tube on the right side was dissected free of the ovary and amputated at the level of the uterine serosa using the Ligasure device. The left tube was similarly dissected and amputated. Tubes were passed off to be sent to pathology. Hemostasis was excellent. The ports were withdrawn. The gas was allowed to escape. The skin incisions were reapproximated using interrupted subcuticular sutures of 4 0 Monocryl. Dermaflex was applied externally. The vaginal instrumentation was withdrawn and hemostasis was excellent here as well. Sponge, lap, needle and instrument counts were correct. The patient was awakened and taken to recovery room in stable condition. I was present and scrubbed through the entire procedure. Estimated Blood Loss 5 Drains No Packing No Pathology Yes (Bilateral Fallopian tubes) Complications None Condition Stable Disposition PACU
[2024-06-25] MEDS: fentaNYL CITRATE INJ (*CRX) 100 MCG/2 ML VIAL 25 MCG IV PUSH ×4 (14:22→14:44)
[2024-06-25] MEDS: ONDANSETRON INJ 4 MG/2 ML VIAL IV PUSH (14:29)
--- NOTE | 2024-06-25 14:31 | SUR.PHASEI ---
1430: Simple mask removed.
[2024-06-25] MEDS: oxyCODONE HCL (*CRX) 5 MG TAB IR PO (15:22)
== END 2024-06-25 16:10 | disposition home or self-care (01) ==
PROVIDERS: PCP Physician Assistant; Visit Provider Obstetrics & Gynecology
PROC: (CPT 49320; principal; 2024-06-25 13:30)
DX: Z30.2 Encounter for sterilization (principal); N83.8 Other noninflammatory disorders of ovary, fallopian tube and broad ligament; G89.18 Other acute postprocedural pain; I10 Essential (primary) hypertension; F31.9 Bipolar disorder, unspecified; F12.90 Cannabis use, unspecified, uncomplicated; E66.01 Morbid (severe) obesity due to excess calories; Z68.41 Body mass index [BMI] 40.0-44.9, adult; Z98.890 Other specified postprocedural states; Z87.728 Personal history of other specified (corrected) congenital malformations of nervous system and sense organs
CPT/HCPCS: 58661; 88302; A9270; J1100; J1885; J2003; J2250; J2405; J2704; J3010; J7120